=== PATIENT | female | born 1935 | race African-American/Black ===

== ENCOUNTER → 2018-04-13 | Outpatient (CLI) | payer BC | END | disposition home or self-care (01) | LOC: ECHO 08:45 | DX: I08.1 Rheumatic disorders of both mitral and tricuspid valves (principal); I25.10 Atherosclerotic heart disease of native coronary artery without angina pectoris; I10 Essential (primary) hypertension; E78.5 Hyperlipidemia, unspecified; R29.898 Other symptoms and signs involving the musculoskeletal system | CPT/HCPCS: 93306 ==

== ENCOUNTER 2018-08-15 14:15 | Inpatient (IN) | payer BC ==
[~2018-08-15] VITALS: Ht 160 cm; Wt 48.8 kg
[~2018-08-15 14:15] MED LIST: AMLO10TA6 PO; ASPI-482 PO; CARV25TA PO; LISI-130 PO
[2018-08-15] MEDS ORDERED: ACETAMINOPHEN 500 MG TABLET PO ONE (14:30)
[2018-08-15] MEDS ORDERED: LABETALOL 20 MG/4 ML DISP.SYRIN. IVP ONE ×2 (14:30→15:30)
--- NOTE | 2018-08-15 14:32 | PHYS DOC ---
Past Medical History Past Medical History: High Cholesterol, Hypertension, MA Past Surgical History: Coronary Bypass Surgery Smoking: Cigarettes (The patient is a nonsmoker.) Alcohol Use: None Drug Use: None Adult General HPI HPI Patient is a very pleasant 83-year-old female who presents to the emergency department via EMS. She states she hasn't felt well for about a month, with a posterior headache which has been rather steady and constant for about a month. She has not had any vision changes, nausea, vomiting, numbness or weakness. She has not had any chest pain or shortness of breath. She went see her PCP and was found to be profoundly hypertensive, blood pressure is about 250 systolic. She does have a history of hypertension, but states she ran out of her lisinopril 10 mg about a week ago. Her headache has been present for months, and did not start abruptly her suddenly. She is not having any fevers or chills, neck pain or stiffness. There are no alleviating or exacerbating factors to the patient's symptoms. Review of Systems Review of Systems Constitutional: Denies fever or chills [] Eyes: Denies change in visual acuity, redness, or eye pain [] HENT: Denies nasal congestion or sore throat [] Respiratory: Denies cough or shortness of breath [] Cardiovascular: The patient denies any shortness of breath, chest pain, palpitations, or orthopnea [] GI: Denies abdominal pain, nausea, vomiting, bloody stools or diarrhea [] : Denies dysuria or hematuria [] Musculoskeletal: Denies back pain or joint pain [] Integument: Denies rash or skin lesions [] Neurologic: Denies focal weakness or sensory changes [] Endocrine: Denies polyuria or polydipsia [] All other systems were reviewed and found to be within normal limits, except as documented in this note. Current Medications Current Medications Current Medications Medications (Trade) Dose Ordered Sig/Emiliano Start Time Stop Time Status Last Admin Dose Admin Acetaminophen (Tylenol) 1,000 mg 1X ONCE 08/15/18 14:30 18 14:31 DC 08/15/18 15:03 1,000 MG Labetalol HCl (Normodyne Iv Push) 40 mg 1X ONCE 08/15/18 15:30 18 15:31 DC Allergies Allergies Allergies Coded Allergies Type Severity Reaction Last Updated Verified morphine Allergy Intermediate 3/31/14 Yes Physical Exam Physical Exam PHYSICAL EXAM: CONSTITUTIONAL: Well developed, well nourished HEAD: normocephalic, atraumatic EENT: PERRL, EOMI. Conjunctivae normal color, sclerae non-icteric; moist mucous membranes. NECK: Supple, non-tender; no meningismus. LUNGS: Lungs CTA, breathing even and unlabored. Normal air movement. HEART: Regular rate and rhythm, no murmur CHEST: No deformity; non-tender ABDOMEN: The abdomen is soft, and non-tender, no masses or bruits. EXTREM: Normal ROM; no deformity, no calf tenderness. Normal pulses palpable in all extremities. There is no pedal edema. SKIN: No rash; no diaphoresis NEURO: Alert; normal speech and cognition; CN's grossly intact; strength grossly intact without focal deficit. Visual lopez are intact by confrontation. [id number] testing is normal. BACK: No CVA TTP. Current Patient Data Vital Signs Vital Signs Date Time Temp Pulse Resp B/P (MAP) Pulse Ox O2 Delivery O2 Flow Rate FiO2 08/15/18 15:08 52 218/101 08/15/18 14:31 98.1 16 98 Room Air 98.1 Lab Values Laboratory Tests Test 08/15/18 14:27 White Blood Count 5.5 x10^3/uL (4.0-11.0) Red Blood Count 3.97 x10^6/uL (3.50-5.40) Hemoglobin 11.1 g/dL (12.0-15.5) L Hematocrit 33.8 % (36.0-47.0) L Mean Corpuscular Volume 85 fL (79-100) Mean Corpuscular Hemoglobin 28 pg (25-35) Mean Corpuscular Hemoglobin Concent 33 g/dL (31-37) Red Cell Distribution Width 14.7 % (11.5-14.5) H Platelet Count 230 x10^3/uL (140-400) Neutrophils (%) (Auto) 53 % (31-73) Lymphocytes (%) (Auto) 32 % (24-48) Monocytes (%) (Auto) 9 % (0-9) Eosinophils (%) (Auto) 5 % (0-3) H Basophils (%) (Auto) 1 % (0-3) Neutrophils # (Auto) 2.9 x10^3uL (1.8-7.7) Lymphocytes # (Auto) 1.8 x10^3/uL (1.0-4.8) Monocytes # (Auto) 0.5 x10^3/uL (0.0-1.1) Eosinophils # (Auto) 0.3 x10^3/uL (0.0-0.7) Basophils # (Auto) 0.1 x10^3/uL (0.0-0.2) Prothrombin Time 14.7 SEC (11.7-14.0) H Prothrombin Time INR 1.2 (0.8-1.1) H Sodium Level 142 mmol/L (136-145) Potassium Level 3.4 mmol/L (3.5-5.1) L Chloride Level 104 mmol/L (98-107) Carbon Dioxide Level 27 mmol/L (21-32) Anion Gap 11 (6-14) Blood Urea Nitrogen 18 mg/dL (7-20) Creatinine 1.4 mg/dL (0.6-1.0) H Estimated GFR (Cockcroft-Gault) 43.7 BUN/Creatinine Ratio 13 (6-20) Glucose Level 84 mg/dL (70-99) Calcium Level 9.0 mg/dL (8.5-10.1) Total Bilirubin 0.4 mg/dL (0.2-1.0) Aspartate Amino Transferase (AST) 18 U/L (15-37) Alanine Aminotransferase (ALT) 9 U/L (14-59) L Alkaline Phosphatase 72 U/L (46-116) Creatine Kinase 95 U/L (26-192) Creatine Kinase MB (Mass) 1.0 ng/mL (0.0-3.6) Creatine Kinase MB Relative Index 1.1 % (0-4) Troponin I Quantitative < 0.017 ng/mL (0.000-0.055) Total Protein 7.6 g/dL (6.4-8.2) Albumin 3.3 g/dL (3.4-5.0) L Albumin/Globulin Ratio 0.8 (1.0-1.7) L Laboratory Tests 08/15/18 14:27 Laboratory Tests 08/15/18 14:27 EKG EKG [Normal sinus rhythm at a rate of 48 bpm, normal axis, QTC of 486 ms with otherwise normal intervals, left ventricular hypertrophy, there are no acute ischemic ST/T changes.] Radiology/Procedures Radiology/Procedures [PROCEDURE: CT HEAD WO CONTRAST CT HEAD WO CONTRAST Clinical indications: Headache and hypertension X MONTHS COMPARISON: August 25, 2009. Technique: Noncontrast axial cross sectional scanning of the head was performed. PQRS compliance Statement One or more of the following individualized dose reduction techniques were utilized for this study: 1. Automated exposure control 2. Adjustment of the mA and/or kV according to patient size 3. Use of iterative reconstruction technique Findings: No acute intracranial hemorrhage or midline shift or mass-effect or hydrocephalus or extra-axial fluid collection is seen. Mild chronic small vessel ischemic disease is evident involving both thalami and the right basal ganglia and the left basal ganglia No new focal hypodense area or sulci effacement is seen to indicate an acute infarct or edema radiographically. No skull fracture or pneumocephalus is seen. No opacification of the mastoid sinuses or the paranasal sinuses is seen. The maxillary sinuses are not completely seen in this study. Impression: No acute intracranial abnormality is seen.] PROCEDURE: PORTABLE CHEST 1V PORTABLE CHEST 1V Clinical indications: The patient states has high blood pressure, hypertension. COMPARISON: November 24, 2013. Findings: No acute lung infiltrate or pleural effusion or pulmonary edema or lung mass or pneumothorax is seen. Sternotomy is again evident. The heart size is prominent but stable. The pulmonary vasculature, mediastinum and both calvin are stable. Impression: No acute radiographic abnormality is seen. Course & Med Decision Making Course & Med Decision Making Pertinent Labs and Imaging studies reviewed. (See chart for details) [3:40 PM: The patient's condition remains stable. Her headache has improved somewhat. Her blood pressure has had about a 10% reduction, down to about 225 systolic. She'll be given a second dose of labetalol and I will also give her dose of her lisinopril, something she missed this morning. The case was discussed with the hospitalist will admit the patient for further evaluation and treatment.] Dragon Disclaimer Dragon Disclaimer This electronic medical record was generated, in whole or in part, using a voice recognition dictation system. Departure Departure Impression: Primary Impression: Hypertensive urgency Disposition: 09 ADMITTED INPATIENT Admitting Physician: David Bertrand Condition: STABLE Referrals: JOSH ARRIETA (PCP) CRHISTINA CHAVARRIA MD Aug 15, 2018 14:32
[2018-08-15 14:38] LABS: BASO # 0.1 x10^3/uL (0.0-0.2); BASO % 1 % (0-3); EOS # 0.3 x10^3/uL (0.0-0.7); EOS % 5 % (0-3); HEMATOCRIT 33.8 % (36.0-47.0); HEMOGLOBIN 11.1 g/dL (12.0-15.5); LYMPH # 1.8 x10^3/uL (1.0-4.8); LYMPH % 32 % (24-48); MEAN CORPUSCULAR HEMOGLOBIN 28 pg (25-35); MEAN CORPUSCULAR HGB CONC 33 g/dL (31-37); MEAN CORPUSCULAR VOLUME 85 fL (79-100); MONO # 0.5 x10^3/uL (0.0-1.1); MONO % 9 % (0-9); NEUT # 2.9 x10^3uL (1.8-7.7); NEUT % 53 % (31-73); PLATELET COUNT 230 x10^3/uL (140-400); RED BLOOD COUNT 3.97 x10^6/uL (3.50-5.40); RED CELL DISTRIBUTION WIDTH 14.7 % (11.5-14.5); WHITE BLOOD COUNT 5.5 x10^3/uL (4.0-11.0)
[2018-08-15 14:45] LABS: PROTHROMBIN TIME PATIENT 14.7 SEC (11.7-14.0)
[2018-08-15 14:51] LABS: CREATININE 1.4 mg/dL (0.6-1.0); GFR 43.7; POTASSIUM 3.4 mmol/L (3.5-5.1)
[2018-08-15 14:58] LABS: ALBUMIN 3.3 g/dL (3.4-5.0); ALBUMIN/GLOBULIN RATIO 0.8 (1.0-1.7); TOTAL BILIRUBIN 0.4 mg/dL (0.2-1.0); TOTAL PROTEIN 7.6 g/dL (6.4-8.2)
--- NOTE | 2018-08-15 15:21 | RAD ---
PORTABLE CHEST 1V Clinical indications: The patient states has high blood pressure, hypertension. COMPARISON: November 24, 2013. Findings: No acute lung infiltrate or pleural effusion or pulmonary edema or lung mass or pneumothorax is seen. Sternotomy is again evident. The heart size is prominent but stable. The pulmonary vasculature, mediastinum and both calvin are stable. Impression: No acute radiographic abnormality is seen. Electronically signed by: Roque López MD (08/15/2018 3:17 PM) [facility]
--- NOTE | 2018-08-15 15:36 | RAD ---
CT HEAD WO CONTRAST Clinical indications: Headache and hypertension X MONTHS COMPARISON: August 25, 2009. Technique: Noncontrast axial cross sectional scanning of the head was performed. PQRS compliance Statement One or more of the following individualized dose reduction techniques were utilized for this study: 1. Automated exposure control 2. Adjustment of the mA and/or kV according to patient size 3. Use of iterative reconstruction technique Findings: No acute intracranial hemorrhage or midline shift or mass-effect or hydrocephalus or extra-axial fluid collection is seen. Mild chronic small vessel ischemic disease is evident involving both thalami and the right basal ganglia and the left basal ganglia No new focal hypodense area or sulci effacement is seen to indicate an acute infarct or edema radiographically. No skull fracture or pneumocephalus is seen. No opacification of the mastoid sinuses or the paranasal sinuses is seen. The maxillary sinuses are not completely seen in this study. Impression: No acute intracranial abnormality is seen. Electronically signed by: Roque López MD (08/15/2018 3:33 PM) [id number]
--- NOTE | 2018-08-15 15:41 | EKG ---
[facility] [address] [place] [address] Test Date: 2018-08-15 Test Time: 14:47:10 Pat Name: SARIAH MENENDEZ Department: Room: Gender: F Barker Operator: : [id number] Requested By: CHRISTINA CHAVARRIA Order Number: [id number] Reading MD: Measurements Intervals [place] Rate: 48 P: 38 WY: 136 QRS: 1 QRSD: 86 T: 41 QT: 540 QTc: 486 Interpretive Statements SINUS BRADYCARDIA PROLONGED QT NO SPECIFIC ECG ABNORMALITIES RI6.01 No previous ECG available for comparison
[2018-08-15] MEDS ORDERED: LISINOPRIL 10 MG TABLET PO ONE (15:45)
[2018-08-15 16:14] LABS: BILIRUBIN,URINE NEGATIVE (NEG); CLARITY,URINE CLEAR; COLOR,URINE YELLOW; NITRITE,URINE NEGATIVE (NEG); PH,URINE 6.5; PROTEIN,URINE NEGATIVE (NEG-TRACE)
[2018-08-15 16:20] LABS: BACTERIA,URINE FEW /HPF (0-FEW); SQUAMOUS EPITHELIAL CELL,UR FEW /LPF; WBC,URINE OCC /HPF (0-4)
[2018-08-15 17:30] VITALS: BP 220/93
[2018-08-15] MEDS ORDERED: LISI40TA2 PO (17:58)
[2018-08-15] MEDS ORDERED: CARV25TA2 PO (17:58)
[2018-08-15 18:00] VITALS: BP 162/97
[2018-08-15] MEDS ORDERED: LISINOPRIL 20 MG TABLET PO ONE (18:30)
[2018-08-15] MEDS ORDERED: amLODIPine BESYLATE 10 MG TABLET PO ONE (18:30)
--- NOTE | 2018-08-15 18:44 | HP ---
ADMIT DATE: 08/15/2018 CHIEF COMPLAINT: Not feeling well. HISTORY OF PRESENT ILLNESS: The patient is a pleasant 83-year-old female who has not been feeling well. She has been having a headache, has been rather steady, rated at 9/10, worse with moving, better with sitting still. While in the ER, we checked her blood pressure. It is 250 systolically. She has now been admitted for severe accelerated hypertension. PAST MEDICAL HISTORY: Hypertension, hyperlipidemia, myocardial infarction, coronary bypass. ALLERGIES: MORPHINE. FAMILY HISTORY: Coronary disease. SOCIAL HISTORY: She does not drink, smoke or take drugs. 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 MEDICATIONS: Reviewed. She is on 3 including carvedilol, lisinopril and aspirin. REVIEW OF SYSTEMS: GENERAL: No history of weight change, weakness or fevers. SKIN: No bruising, hair changes or rashes. EYES: No blurred, double or loss of vision. NOSE AND THROAT: No history of nosebleeds, hoarseness or sore throat. HEART: No history of palpitations, chest pain or shortness of breath on exertion. LUNGS: Denies cough, hemoptysis, wheezing or shortness of breath. GASTROINTESTINAL: Denies changes in appetite, nausea, vomiting, diarrhea or constipation. GENITOURINARY: No history of frequency, urgency, hesitancy or nocturia. NEUROLOGIC: She complains of a headache. PSYCHIATRIC: No history of panic, anxiety or depression. ENDOCRINE: No history of heat or cold intolerance, polyuria or polydipsia. EXTREMITIES: Denies muscle weakness, joint pain, pain on walking or stiffness. PHYSICAL EXAMINATION: VITAL SIGNS: Temperature afebrile, pulse 48, respirations 20, blood pressure 227/110. GENERAL: She is alert, cooperative. HEART: Normal S1, S2. LUNGS: Clear. ABDOMEN: Soft. EXTREMITIES: No edema. SKIN: No rash. ENDOCRINE: No thyromegaly. LYMPHATICS: No cervical nodes. HEMATOPOIETIC: No bruising. PSYCHIATRIC: She is a little depressed. GENITOURINARY: Normal. Hemoglobin is 11.1, potassium 3.4. ASSESSMENT AND PLAN: Accelerated malignant hypertension. The patient has been admitted. We will give her IV Cardizem, p.o. labetalol, replace her potassium, cardiac monitoring, serial enzymes, serial EKGs, consult Cardiology, home meds. POLLYL Marylu PIERSON DO DR: Shahrzad JOB#: [id number] / [id number]
[2018-08-15 19:00] VITALS: BP 156/72
[2018-08-15 19:25] VITALS: BP 142/66
[2018-08-15 23:15] VITALS: BP 187/87
[2018-08-16] MEDS ORDERED: cloNIDine HCL 0.2 MG TABLET PO PRN (00:30)
[2018-08-16] MEDS ORDERED: cloNIDine HCL 0.1 MG TABLET PO ONE (00:45)
[2018-08-16 03:20] VITALS: BP 134/63
[2018-08-16 07:00] VITALS: BP 146/69
[2018-08-16] MEDS: ASPIRIN ENTERIC COATED 81 MG TABLET.DR. PO SCH (08:41)
[2018-08-16] MEDS: LISINOPRIL 20 MG TABLET PO SCH (08:41)
[2018-08-16] MEDS ORDERED: CARVEDILOL 12.5 MG TABLET. PO SCH (09:00)
--- NOTE | 2018-08-16 09:12 | PDOC2 ---
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 She went to her PCP yesterday and was told that her BP was very high and because she was also having PERDUE she was told to come to ED. Reports that she ran out of lisinopril about a week ago but at the same time she has been having frontal PERDUE in the last few weeks. No visual or auditory disturbances, She has been eating more fast foods in the last few weeks due to her grandson being around. She does drink 2 cans of coke and mainly water. Denies any SOA, chest pain, unilateral weakness, dysarthria. No frequent dizziness or passing out. No recent falls or injury. Denies any leg pain and there has been no changes to her activity tolerance. 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) FAMILY HISTORY Family History: Hypertension SOCIAL HISTORY Smoke: No ALCOHOL: none Drugs: None Lives: with Family (son) CURRENT MEDICATIONS CURRENT MEDICATIONS Current Medications Medications (Trade) Dose Ordered Sig/Emiliano Route PRN Reason Start Time Stop Time Status Last Admin Dose Admin Acetaminophen (Tylenol) 1,000 mg 1X ONCE PO 08/15/18 14:30 08/15/18 14:31 DC 08/15/18 15:03 Labetalol HCl (Normodyne Iv Push) 20 mg 1X ONCE IVP 08/15/18 14:30 08/15/18 14:31 DC 08/15/18 15:08 Labetalol HCl (Normodyne Iv Push) 40 mg 1X ONCE IVP 08/15/18 15:30 08/15/18 15:31 DC 08/15/18 15:53 Lisinopril (Prinivil) 10 mg 1X ONCE PO 08/15/18 15:45 08/15/18 15:47 DC 08/15/18 15:58 Amlodipine Besylate (Norvasc) 10 mg 1X ONCE PO 08/15/18 18:30 08/15/18 18:31 DC 08/15/18 18:37 Aspirin (Ecotrin) 81 mg DAILY PO 08/16/18 09:00 08/16/18 08:41 Carvedilol (Coreg) 25 mg DAILY PO 08/16/18 09:00 08/16/18 08:42 Lisinopril (Prinivil) 40 mg DAILY PO 08/16/18 09:00 08/16/18 08:41 Lisinopril (Prinivil) 20 mg 1X ONCE PO 08/15/18 18:30 08/15/18 18:31 DC 08/15/18 18:38 Influenza Virus Vaccine (Afluria Trivalent [id number] Syringe) 0.5 ml ONCE ONCE VAX IM 08/16/18 09:00 08/16/18 09:01 08/16/18 08:44 Clonidine HCl (Catapres) 0.2 mg 1X ONCE PO 08/16/18 00:45 08/16/18 00:46 DC 08/16/18 00:37 ALLERGIES ALLERGIES: Coded Allergies: morphine (Verified Allergy, Intermediate, 12/09/13) ROS Review of System 14 point ROS evaluated with pertinent positives noted per HPI PHYSICAL EXAM General: Alert, Oriented X3, Cooperative, No acute distress HEENT: Atraumatic, Mucous membr. moist/pink Lungs: Clear to auscultation, Normal air movement Heart: Regular rate (SR/SB), Normal S1, Normal S2, Other (3/6 systolic murmur to JENNIFER border; 2/6 diffuse to apex and LLS border) Abdomen: Soft, No tenderness Extremities: No cyanosis, No edema Skin: No breakdown, No significant lesion Neuro: Normal speech, Sensation intact Psych/Mental Status: Mental status NL, Mood NL MUSCULOSKELETAL: Osteoarthritic changes both hands VITALS VITALS Vital Signs Date Time Temp Pulse Resp B/P (MAP) Pulse Ox O2 Delivery O2 Flow Rate FiO2 08/16/18 08:42 52 144/69 08/16/18 03:20 97.7 17 100 Room Air 97.7 LABS Lab: Laboratory Tests Test 08/15/18 14:27 08/15/18 16:00 White Blood Count 5.5 x10^3/uL (4.0-11.0) Red Blood Count 3.97 x10^6/uL (3.50-5.40) Hemoglobin 11.1 g/dL (12.0-15.5) Hematocrit 33.8 % (36.0-47.0) Mean Corpuscular Volume 85 fL (79-100) Mean Corpuscular Hemoglobin 28 pg (25-35) Mean Corpuscular Hemoglobin Concent 33 g/dL (31-37) Red Cell Distribution Width 14.7 % (11.5-14.5) Platelet Count 230 x10^3/uL (140-400) Neutrophils (%) (Auto) 53 % (31-73) Lymphocytes (%) (Auto) 32 % (24-48) Monocytes (%) (Auto) 9 % (0-9) Eosinophils (%) (Auto) 5 % (0-3) Basophils (%) (Auto) 1 % (0-3) Neutrophils # (Auto) 2.9 x10^3uL (1.8-7.7) Lymphocytes # (Auto) 1.8 x10^3/uL (1.0-4.8) Monocytes # (Auto) 0.5 x10^3/uL (0.0-1.1) Eosinophils # (Auto) 0.3 x10^3/uL (0.0-0.7) Basophils # (Auto) 0.1 x10^3/uL (0.0-0.2) Prothrombin Time 14.7 SEC (11.7-14.0) Prothromb Time International Ratio 1.2 (0.8-1.1) Sodium Level 142 mmol/L (136-145) Potassium Level 3.4 mmol/L (3.5-5.1) Chloride Level 104 mmol/L (98-107) Carbon Dioxide Level 27 mmol/L (21-32) Anion Gap 11 (6-14) Blood Urea Nitrogen 18 mg/dL (7-20) Creatinine 1.4 mg/dL (0.6-1.0) Estimated GFR (Cockcroft-Gault) 43.7 BUN/Creatinine Ratio 13 (6-20) Glucose Level 84 mg/dL (70-99) Calcium Level 9.0 mg/dL (8.5-10.1) Total Bilirubin 0.4 mg/dL (0.2-1.0) Aspartate Amino Transf (AST/SGOT) 18 U/L (15-37) Alanine Aminotransferase (ALT/SGPT) 9 U/L (14-59) Alkaline Phosphatase 72 U/L (46-116) Creatine Kinase 95 U/L (26-192) Creatine Kinase MB (Mass) 1.0 ng/mL (0.0-3.6) Creatine Kinase MB Relative Index 1.1 % (0-4) Troponin I Quantitative < 0.017 ng/mL (0.000-0.055) Total Protein 7.6 g/dL (6.4-8.2) Albumin 3.3 g/dL (3.4-5.0) Albumin/Globulin Ratio 0.8 (1.0-1.7) Urine Collection Type Unknown Urine Color Yellow Urine Clarity Clear Urine pH 6.5 Urine Specific [place] 1.015 Urine Protein Negative mg/dL (NEG-TRACE) Urine Glucose (UA) Negative mg/dL (NEG) Urine Ketones (Stick) Negative mg/dL (NEG) Urine Blood Negative (NEG) Urine Nitrite Negative (NEG) Urine Bilirubin Negative (NEG) Urine Urobilinogen Dipstick 1.0 mg/dL (0.2 mg/dL) Urine Leukocyte Esterase Trace (NEG) Urine RBC 1-2 /HPF (0-2) Urine WBC Occ /HPF (0-4) Urine Squamous Epithelial Cells Few /LPF Urine Bacteria Few /HPF (0-FEW) ECHOCARDIOGRAM ECHOCARDIOGRAM <Conclusion> Basal inferior wall is akinetic. The ejection fraction is estiamted at 60%. Mild mitral regurgitation. Mild tricuspid regurgitation. The PA pressure was estimated at 29 mmHg. There is no evidence of significant pericardial effusion. DATE: 04/13/18 1024 ASSESSMENT/PLAN ASSESSMENT/PLAN 1. PERDUE: due to high BP. CT head no acute changes, no neuro symptoms 2. Malignant HTN: ran out of lisinopril for 1 week with increased Na intake 3. CAD: past CABG, clinically stable 4. PAD: stable no claudications 5. Asymptomatic SB: due to coreg and addition of inpt clonidine 6. Murmur: MR/TR Recommendations 1. lipids, will place on statin per level. 2. Continue ASA. No further clonidine and will decrease coreg from 25 mg to 12.5 mg bid 3. Continue with norvasc. Restart lisinopril and will add HCTZ and imdur. 4. BMP, Mg and TSH 5. DASH diet, dietitian consult CELIA PEARCE MD 08/16/182033: CARDIAC CONSULT ASSESSMENT/PLAN ASSESSMENT/PLAN Plan event monitor as outpatient to assess arrhythmia burden Accelerated HTN from non compliance, better controlled since admission CAD status clinically stable Recent 2D echo showed EF 60% Continue current medical regimen. Thank you for your consultation SWAPNA RAMOS APRN Aug 16, 2018 09:12 CELIA PEARCE MD Aug 16, 2018 20:34
[2018-08-16] MEDS ORDERED: POTASSIUM CHLORIDE 20 MEQ TABLET.ER. PO ONE (09:15)
[2018-08-16 09:58] LABS: BASO # 0.1 x10^3/uL (0.0-0.2); BASO % 1 % (0-3); EOS # 0.2 x10^3/uL (0.0-0.7); EOS % 4 % (0-3); HEMATOCRIT 34.1 % (36.0-47.0); HEMOGLOBIN 11.1 g/dL (12.0-15.5); LYMPH # 1.3 x10^3/uL (1.0-4.8); LYMPH % 27 % (24-48); MEAN CORPUSCULAR HEMOGLOBIN 28 pg (25-35); MEAN CORPUSCULAR HGB CONC 33 g/dL (31-37); MEAN CORPUSCULAR VOLUME 85 fL (79-100); MONO # 0.3 x10^3/uL (0.0-1.1); MONO % 7 % (0-9); NEUT # 2.9 x10^3uL (1.8-7.7); NEUT % 61 % (31-73); PLATELET COUNT 215 x10^3/uL (140-400); RED BLOOD COUNT 4.04 x10^6/uL (3.50-5.40); RED CELL DISTRIBUTION WIDTH 14.9 % (11.5-14.5); WHITE BLOOD COUNT 4.8 x10^3/uL (4.0-11.0)
[2018-08-16 10:05] LABS: CALCIUM 9.1 mg/dL (8.5-10.1); CREATININE 1.3 mg/dL (0.6-1.0); GFR 47.6; POTASSIUM 3.9 mmol/L (3.5-5.1)
[2018-08-16 10:18] LABS: CHOLESTEROL/HDL RATIO 5.6
[2018-08-16 11:00] VITALS: BP 140/62
--- NOTE | 2018-08-16 11:11 | PDOC ---
PROGRESS NOTES Chief Complaint Chief Complaint Hypertensive Urgency History of Present Illness History of Present Illness Pt was seen on Cardiac floor for hypertensive urgency, Current BP 134/65 with sinus bradycardia R 54. She is lying down in bed, no acute overnight events, she did admit 40 lb wt loss over last 3-4 months, denied any hx of cancer or bloody stools. h pulmonary sarcoid, will consult Dr. Choe for work up on wt loss. Pt is hypokalemic with K 3.4 repleting currently, 08/15 CT head and CXR were negative for acute findings. MICK RN wt loss and any events or needs of pt Followed by Cardio and hem onc Vitals Vitals Vital Signs Date Time Temp Pulse Resp B/P (MAP) Pulse Ox O2 Delivery O2 Flow Rate FiO2 08/16/18 08:42 52 144/69 08/16/18 07:00 98.6 18 100 Room Air 98.6 Physical Exam General: Alert, Oriented X3, Cooperative, No acute distress Heart: Regular rate (SR/SB 54), Normal S1, Normal S2, Other (3/6 systolic murmur to JENNIFER border; 2/6 diffuse to apex and LLS border) Abdomen: Soft, No tenderness Extremities: No cyanosis, No edema Skin: No breakdown, No significant lesion Labs LABS Laboratory Tests Test 08/15/18 14:27 08/15/18 16:00 08/16/18 08:40 White Blood Count 5.5 x10^3/uL (4.0-11.0) 4.8 x10^3/uL (4.0-11.0) Red Blood Count 3.97 x10^6/uL (3.50-5.40) 4.04 x10^6/uL (3.50-5.40) Hemoglobin 11.1 g/dL (12.0-15.5) 11.1 g/dL (12.0-15.5) Hematocrit 33.8 % (36.0-47.0) 34.1 % (36.0-47.0) Mean Corpuscular Volume 85 fL (79-100) 85 fL (79-100) Mean Corpuscular Hemoglobin 28 pg (25-35) 28 pg (25-35) Mean Corpuscular Hemoglobin Concent 33 g/dL (31-37) 33 g/dL (31-37) Red Cell Distribution Width 14.7 % (11.5-14.5) 14.9 % (11.5-14.5) Platelet Count 230 x10^3/uL (140-400) 215 x10^3/uL (140-400) Neutrophils (%) (Auto) 53 % (31-73) 61 % (31-73) Lymphocytes (%) (Auto) 32 % (24-48) 27 % (24-48) Monocytes (%) (Auto) 9 % (0-9) 7 % (0-9) Eosinophils (%) (Auto) 5 % (0-3) 4 % (0-3) Basophils (%) (Auto) 1 % (0-3) 1 % (0-3) Neutrophils # (Auto) 2.9 x10^3uL (1.8-7.7) 2.9 x10^3uL (1.8-7.7) Lymphocytes # (Auto) 1.8 x10^3/uL (1.0-4.8) 1.3 x10^3/uL (1.0-4.8) Monocytes # (Auto) 0.5 x10^3/uL (0.0-1.1) 0.3 x10^3/uL (0.0-1.1) Eosinophils # (Auto) 0.3 x10^3/uL (0.0-0.7) 0.2 x10^3/uL (0.0-0.7) Basophils # (Auto) 0.1 x10^3/uL (0.0-0.2) 0.1 x10^3/uL (0.0-0.2) Prothrombin Time 14.7 SEC (11.7-14.0) Prothromb Time International Ratio 1.2 (0.8-1.1) Sodium Level 142 mmol/L (136-145) 144 mmol/L (136-145) Potassium Level 3.4 mmol/L (3.5-5.1) 3.9 mmol/L (3.5-5.1) Chloride Level 104 mmol/L (98-107) 106 mmol/L (98-107) Carbon Dioxide Level 27 mmol/L (21-32) 28 mmol/L (21-32) Anion Gap 11 (6-14) 10 (6-14) Blood Urea Nitrogen 18 mg/dL (7-20) 19 mg/dL (7-20) Creatinine 1.4 mg/dL (0.6-1.0) 1.3 mg/dL (0.6-1.0) Estimated GFR (Cockcroft-Gault) 43.7 47.6 BUN/Creatinine Ratio 13 (6-20) Glucose Level 84 mg/dL (70-99) 98 mg/dL (70-99) Calcium Level 9.0 mg/dL (8.5-10.1) 9.1 mg/dL (8.5-10.1) Total Bilirubin 0.4 mg/dL (0.2-1.0) Aspartate Amino Transf (AST/SGOT) 18 U/L (15-37) Alanine Aminotransferase (ALT/SGPT) 9 U/L (14-59) Alkaline Phosphatase 72 U/L (46-116) Creatine Kinase 95 U/L (26-192) Creatine Kinase MB (Mass) 1.0 ng/mL (0.0-3.6) Creatine Kinase MB Relative Index 1.1 % (0-4) Troponin I Quantitative < 0.017 ng/mL (0.000-0.055) Total Protein 7.6 g/dL (6.4-8.2) Albumin 3.3 g/dL (3.4-5.0) Albumin/Globulin Ratio 0.8 (1.0-1.7) Urine Collection Type Unknown Urine Color Yellow Urine Clarity Clear Urine pH 6.5 Urine Specific [place] 1.015 Urine Protein Negative mg/dL (NEG-TRACE) Urine Glucose (UA) Negative mg/dL (NEG) Urine Ketones (Stick) Negative mg/dL (NEG) Urine Blood Negative (NEG) Urine Nitrite Negative (NEG) Urine Bilirubin Negative (NEG) Urine Urobilinogen Dipstick 1.0 mg/dL (0.2 mg/dL) Urine Leukocyte Esterase Trace (NEG) Urine RBC 1-2 /HPF (0-2) Urine WBC Occ /HPF (0-4) Urine Squamous Epithelial Cells Few /LPF Urine Bacteria Few /HPF (0-FEW) Triglycerides Level 75 mg/dL (0-150) Cholesterol Level 222 mg/dL (0-200) LDL Cholesterol, Calculated 167 mg/dL (0-100) VLDL Cholesterol, Calculated 15 mg/dL (0-40) Non-HDL Cholesterol Calculated 182 mg/dL (0-129) HDL Cholesterol 40 mg/dL (40-60) Cholesterol/HDL Ratio 5.6 Thyroid Stimulating Hormone (TSH) 1.681 uIU/mL (0.358-3.74) Review of Systems Review of Systems General: Admits 40lb unexplained wt loss Denies fever, chills, nightsweats Cardio: Denies chest pain, palpitations Assessment and Plan Assessmemt and Plan Assessment Hypertensive Urgency Sys 250 controlled 134/65 Sinus Bradycardia 54 Hypokalemia 3.4 repleting currently 40 lbs wt loss per patient- Oncology consult Sarcoidosis pulmonary Plan CBC BMP Hypertensive meds ASA Potassium repletion Cardiac monitoring Appreciate Cardiology input Appreciate Oncology input Appreciate Pulmonology input PT/OT home meds Comment Review of Relevant I have reviewed the following items gabriela (where applicable) has been applied. Labs Laboratory Tests Test 08/15/18 14:27 08/15/18 16:00 08/16/18 08:40 White Blood Count 5.5 x10^3/uL (4.0-11.0) 4.8 x10^3/uL (4.0-11.0) Red Blood Count 3.97 x10^6/uL (3.50-5.40) 4.04 x10^6/uL (3.50-5.40) Hemoglobin 11.1 g/dL (12.0-15.5) 11.1 g/dL (12.0-15.5) Hematocrit 33.8 % (36.0-47.0) 34.1 % (36.0-47.0) Mean Corpuscular Volume 85 fL (79-100) 85 fL (79-100) Mean Corpuscular Hemoglobin 28 pg (25-35) 28 pg (25-35) Mean Corpuscular Hemoglobin Concent 33 g/dL (31-37) 33 g/dL (31-37) Red Cell Distribution Width 14.7 % (11.5-14.5) 14.9 % (11.5-14.5) Platelet Count 230 x10^3/uL (140-400) 215 x10^3/uL (140-400) Neutrophils (%) (Auto) 53 % (31-73) 61 % (31-73) Lymphocytes (%) (Auto) 32 % (24-48) 27 % (24-48) Monocytes (%) (Auto) 9 % (0-9) 7 % (0-9) Eosinophils (%) (Auto) 5 % (0-3) 4 % (0-3) Basophils (%) (Auto) 1 % (0-3) 1 % (0-3) Neutrophils # (Auto) 2.9 x10^3uL (1.8-7.7) 2.9 x10^3uL (1.8-7.7) Lymphocytes # (Auto) 1.8 x10^3/uL (1.0-4.8) 1.3 x10^3/uL (1.0-4.8) Monocytes # (Auto) 0.5 x10^3/uL (0.0-1.1) 0.3 x10^3/uL (0.0-1.1) Eosinophils # (Auto) 0.3 x10^3/uL (0.0-0.7) 0.2 x10^3/uL (0.0-0.7) Basophils # (Auto) 0.1 x10^3/uL (0.0-0.2) 0.1 x10^3/uL (0.0-0.2) Prothrombin Time 14.7 SEC (11.7-14.0) Prothromb Time International Ratio 1.2 (0.8-1.1) Sodium Level 142 mmol/L (136-145) 144 mmol/L (136-145) Potassium Level 3.4 mmol/L (3.5-5.1) 3.9 mmol/L (3.5-5.1) Chloride Level 104 mmol/L (98-107) 106 mmol/L (98-107) Carbon Dioxide Level 27 mmol/L (21-32) 28 mmol/L (21-32) Anion Gap 11 (6-14) 10 (6-14) Blood Urea Nitrogen 18 mg/dL (7-20) 19 mg/dL (7-20) Creatinine 1.4 mg/dL (0.6-1.0) 1.3 mg/dL (0.6-1.0) Estimated GFR (Cockcroft-Gault) 43.7 47.6 BUN/Creatinine Ratio 13 (6-20) Glucose Level 84 mg/dL (70-99) 98 mg/dL (70-99) Calcium Level 9.0 mg/dL (8.5-10.1) 9.1 mg/dL (8.5-10.1) Total Bilirubin 0.4 mg/dL (0.2-1.0) Aspartate Amino Transf (AST/SGOT) 18 U/L (15-37) Alanine Aminotransferase (ALT/SGPT) 9 U/L (14-59) Alkaline Phosphatase 72 U/L (46-116) Creatine Kinase 95 U/L (26-192) Creatine Kinase MB (Mass) 1.0 ng/mL (0.0-3.6) Creatine Kinase MB Relative Index 1.1 % (0-4) Troponin I Quantitative < 0.017 ng/mL (0.000-0.055) Total Protein 7.6 g/dL (6.4-8.2) Albumin 3.3 g/dL (3.4-5.0) Albumin/Globulin Ratio 0.8 (1.0-1.7) Urine Collection Type Unknown Urine Color Yellow Urine Clarity Clear Urine pH 6.5 Urine Specific [place] 1.015 Urine Protein Negative mg/dL (NEG-TRACE) Urine Glucose (UA) Negative mg/dL (NEG) Urine Ketones (Stick) Negative mg/dL (NEG) Urine Blood Negative (NEG) Urine Nitrite Negative (NEG) Urine Bilirubin Negative (NEG) Urine Urobilinogen Dipstick 1.0 mg/dL (0.2 mg/dL) Urine Leukocyte Esterase Trace (NEG) Urine RBC 1-2 /HPF (0-2) Urine WBC Occ /HPF (0-4) Urine Squamous Epithelial Cells Few /LPF Urine Bacteria Few /HPF (0-FEW) Triglycerides Level 75 mg/dL (0-150) Cholesterol Level 222 mg/dL (0-200) LDL Cholesterol, Calculated 167 mg/dL (0-100) VLDL Cholesterol, Calculated 15 mg/dL (0-40) Non-HDL Cholesterol Calculated 182 mg/dL (0-129) HDL Cholesterol 40 mg/dL (40-60) Cholesterol/HDL Ratio 5.6 Thyroid Stimulating Hormone (TSH) 1.681 uIU/mL (0.358-3.74) Laboratory Tests Test 08/15/18 14:27 08/15/18 16:00 08/16/18 08:40 White Blood Count 5.5 x10^3/uL (4.0-11.0) 4.8 x10^3/uL (4.0-11.0) Red Blood Count 3.97 x10^6/uL (3.50-5.40) 4.04 x10^6/uL (3.50-5.40) Hemoglobin 11.1 g/dL (12.0-15.5) 11.1 g/dL (12.0-15.5) Hematocrit 33.8 % (36.0-47.0) 34.1 % (36.0-47.0) Mean Corpuscular Volume 85 fL (79-100) 85 fL (79-100) Mean Corpuscular Hemoglobin 28 pg (25-35) 28 pg (25-35) Mean Corpuscular Hemoglobin Concent 33 g/dL (31-37) 33 g/dL (31-37) Red Cell Distribution Width 14.7 % (11.5-14.5) 14.9 % (11.5-14.5) Platelet Count 230 x10^3/uL (140-400) 215 x10^3/uL (140-400) Neutrophils (%) (Auto) 53 % (31-73) 61 % (31-73) Lymphocytes (%) (Auto) 32 % (24-48) 27 % (24-48) Monocytes (%) (Auto) 9 % (0-9) 7 % (0-9) Eosinophils (%) (Auto) 5 % (0-3) 4 % (0-3) Basophils (%) (Auto) 1 % (0-3) 1 % (0-3) Neutrophils # (Auto) 2.9 x10^3uL (1.8-7.7) 2.9 x10^3uL (1.8-7.7) Lymphocytes # (Auto) 1.8 x10^3/uL (1.0-4.8) 1.3 x10^3/uL (1.0-4.8) Monocytes # (Auto) 0.5 x10^3/uL (0.0-1.1) 0.3 x10^3/uL (0.0-1.1) Eosinophils # (Auto) 0.3 x10^3/uL (0.0-0.7) 0.2 x10^3/uL (0.0-0.7) Basophils # (Auto) 0.1 x10^3/uL (0.0-0.2) 0.1 x10^3/uL (0.0-0.2) Prothrombin Time 14.7 SEC (11.7-14.0) Prothromb Time International Ratio 1.2 (0.8-1.1) Sodium Level 142 mmol/L (136-145) 144 mmol/L (136-145) Potassium Level 3.4 mmol/L (3.5-5.1) 3.9 mmol/L (3.5-5.1) Chloride Level 104 mmol/L (98-107) 106 mmol/L (98-107) Carbon Dioxide Level 27 mmol/L (21-32) 28 mmol/L (21-32) Anion Gap 11 (6-14) 10 (6-14) Blood Urea Nitrogen 18 mg/dL (7-20) 19 mg/dL (7-20) Creatinine 1.4 mg/dL (0.6-1.0) 1.3 mg/dL (0.6-1.0) Estimated GFR (Cockcroft-Gault) 43.7 47.6 BUN/Creatinine Ratio 13 (6-20) Glucose Level 84 mg/dL (70-99) 98 mg/dL (70-99) Calcium Level 9.0 mg/dL (8.5-10.1) 9.1 mg/dL (8.5-10.1) Total Bilirubin 0.4 mg/dL (0.2-1.0) Aspartate Amino Transf (AST/SGOT) 18 U/L (15-37) Alanine Aminotransferase (ALT/SGPT) 9 U/L (14-59) Alkaline Phosphatase 72 U/L (46-116) Creatine Kinase 95 U/L (26-192) Creatine Kinase MB (Mass) 1.0 ng/mL (0.0-3.6) Creatine Kinase MB Relative Index 1.1 % (0-4) Troponin I Quantitative < 0.017 ng/mL (0.000-0.055) Total Protein 7.6 g/dL (6.4-8.2) Albumin 3.3 g/dL (3.4-5.0) Albumin/Globulin Ratio 0.8 (1.0-1.7) Urine Collection Type Unknown Urine Color Yellow Urine Clarity Clear Urine pH 6.5 Urine Specific [place] 1.015 Urine Protein Negative mg/dL (NEG-TRACE) Urine Glucose (UA) Negative mg/dL (NEG) Urine Ketones (Stick) Negative mg/dL (NEG) Urine Blood Negative (NEG) Urine Nitrite Negative (NEG) Urine Bilirubin Negative (NEG) Urine Urobilinogen Dipstick 1.0 mg/dL (0.2 mg/dL) Urine Leukocyte Esterase Trace (NEG) Urine RBC 1-2 /HPF (0-2) Urine WBC Occ /HPF (0-4) Urine Squamous Epithelial Cells Few /LPF Urine Bacteria Few /HPF (0-FEW) Triglycerides Level 75 mg/dL (0-150) Cholesterol Level 222 mg/dL (0-200) LDL Cholesterol, Calculated 167 mg/dL (0-100) VLDL Cholesterol, Calculated 15 mg/dL (0-40) Non-HDL Cholesterol Calculated 182 mg/dL (0-129) HDL Cholesterol 40 mg/dL (40-60) Cholesterol/HDL Ratio 5.6 Thyroid Stimulating Hormone (TSH) 1.681 uIU/mL (0.358-3.74) Medications Current Medications Acetaminophen (Tylenol) 1,000 mg 1X ONCE PO Last administered on 08/15/18at 15: 03; Start 08/15/18 at 14:30; Stop 08/15/18 at 14:31; Status DC Labetalol HCl (Normodyne Iv Push) 20 mg 1X ONCE IVP Last administered on at 15:08; Start 08/15/18 at 14:30; Stop 08/15/18 at 14:31; Status DC Labetalol HCl (Normodyne Iv Push) 40 mg 1X ONCE IVP Last administered on at 15:53; Start 08/15/18 at 15:30; Stop 08/15/18 at 15:31; Status DC Lisinopril (Prinivil) 10 mg 1X ONCE PO Last administered on 08/15/18at 15:58; Start 08/15/18 at 15:45; Stop 08/15/18 at 15:47; Status DC Amlodipine Besylate (Norvasc) 10 mg 1X ONCE PO Last administered on 08/15/18at 18:37; Start 08/15/18 at 18:30; Stop 08/15/18 at 18:31; Status DC Aspirin (Ecotrin) 81 mg DAILY PO Last administered on 08/16/18at 08:41; Start 08/16/18 at 09:00 Carvedilol (Coreg) 25 mg DAILY PO Last administered on 08/16/18at 08:42; Start 08/16/18 at 09:00; Stop 08/16/18 at 09:14; Status DC Lisinopril (Prinivil) 40 mg DAILY PO Last administered on 08/16/18at 08:41; Start 08/16/18 at 09:00 Lisinopril (Prinivil) 20 mg 1X ONCE PO Last administered on 08/15/18at 18:38; Start 08/15/18 at 18:30; Stop 08/15/18 at 18:31; Status DC Influenza Virus Vaccine (Afluria Trivalent [id number] Syringe) 0.5 ml ONCE ONCE VAX IM Last administered on 08/16/18at 08:44; Start 08/16/18 at 09:00; Stop 08/16/18 at 09:01; Status DC Clonidine HCl (Catapres) 0.2 mg 1X ONCE PO Last administered on 08/16/18at 00: 37; Start 08/16/18 at 00:45; Stop 08/16/18 at 00:46; Status DC Clonidine HCl (Catapres) 0.2 mg PRN Q2HR PRN PO HYPERTENSION, SEE COMMENTS; Start 08/16/18 at 00:30 Potassium Chloride (Klor-Con) 40 meq 1X ONCE PO ; Start 08/16/18 at 09:15; Stop 08/16/18 at 09:16; Status Cancel Carvedilol (Coreg) 12.5 mg DAILY PO ; Start 08/17/18 at 09:00 Isosorbide Mononitrate (Imdur) 30 mg DAILY PO ; Start 08/16/18 at 10:00 Hydrochlorothiazide (Microzide) 12.5 mg DAILY PO ; Start 08/16/18 at 10:00 Potassium Chloride (KCl Oral Soln) 40 meq 1X ONCE FT ; Start 08/16/18 at 14:00 ; Stop 08/16/18 at 14:01 Active Scripts Active Reported Carvedilol 25 Mg Tablet 25 Mg PO DAILY Lisinopril 40 Mg Tablet 40 Mg PO DAILY Aspir 81 (Aspirin) 81 Mg Tablet.dr 1 Tab PO DAILY Vitals/I & O Vital Sign - Last 24 Hours 08/15/18 08/15/18 08/15/18 08/15/18 14:19 14:31 14:48 15:03 Temp 98.1 98.1 Pulse 52 55 50 50 Resp 22 16 24 26 B/P (MAP) 242/104 (150) Pulse Ox 98 98 97 99 O2 Delivery Room Air 08/15/18 08/15/18 08/15/18 08/15/18 15:08 15:33 15:48 15:53 Pulse 52 50 50 48 Resp 20 20 B/P (MAP) 218/101 227/110 Pulse Ox 98 98 08/15/18 08/15/18 08/15/18 08/15/18 15:58 16:04 16:18 16:48 Pulse 52 54 48 44 Resp 19 22 18 B/P (MAP) 206/87 Pulse Ox 98 98 08/15/18 08/15/18 08/15/18 08/15/18 17:03 17:30 17:30 18:00 Temp 98.5 98.5 Pulse 48 57 56 Resp 21 B/P (MAP) 220/93 (135) 162/97 (118) Pulse Ox 96 94 O2 Delivery Room Air Room Air 08/15/18 08/15/18 08/15/18 08/15/18 18:37 18:38 19:00 19:25 Temp 98.0 98.0 Pulse 53 52 46 49 Resp 18 B/P (MAP) 197/87 197/87 156/72 (100) 142/66 (91) Pulse Ox 100 O2 Delivery Room Air 08/15/18 08/15/18 08/16/18 08/16/18 20:35 23:15 00:37 03:20 Temp 97.9 97.7 97.9 97.7 Pulse 48 58 54 Resp 18 17 B/P (MAP) 187/87 (120) 187/87 134/63 (86) Pulse Ox 100 100 O2 Delivery Room Air Room Air Room Air 08/16/18 08/16/18 08/16/18 07:00 08:41 08:42 Temp 98.6 98.6 Pulse 62 55 52 Resp 18 B/P (MAP) 146/69 (94) 144/69 144/69 Pulse Ox 100 O2 Delivery Room Air Intake and Output 08/15/18 08/15/18 08/16/18 15:00 23:00 07:00 Intake Total 0 ml Output Total 0 ml Balance 0 ml CECELIA PIERSON III DO Aug 16, 2018 11:11
[2018-08-16] MEDS: hydroCHLOROthiazide 12.5 MG CAPSULE PO SCH (11:27)
[2018-08-16] MEDS: ISOSORBIDE MONONITRATE ER 30 MG TAB.ER.24H PO SCH (11:27)
[2018-08-16] MEDS ORDERED: POTASSIUM CHLORIDE 20 MEQ/15 ML ORAL LIQUID. FT ONE (14:00)
--- NOTE | 2018-08-16 14:01 | CONS ---
DATE OF CONSULTATION: 08/16/2018 REQUESTING PHYSICIAN: David Bertrand DO REASON FOR CONSULTATION: A 40-pound weight loss and to evaluate for malignancy. HISTORY OF PRESENT ILLNESS: The patient is an 83-year-old female who reports having had a history of sarcoidosis at the age of 63. She was treated at [facility] for sarcoidosis. She has not had any issues with sarcoidosis after that. She noticed excessive night sweats and weight loss between April through 08/2018. She has lost 40 pounds of weight during this period. Hence, Dr. Bertrand was concerned about malignancy and consulted me for further evaluation. She denies any chest pain or dyspnea. No abdominal pain. No nausea, vomiting. No nose bleeds or gum bleeding. No hematemesis, melena or hematochezia. No hematuria. She was admitted to on 08/15/2018 for malignant hypertension. Her blood pressure was very high and she was having frontal headaches. Her blood pressure was as high as 250 systolic. She underwent a CT scan of the head on 08/15/2018 without contrast that was unremarkable. PAST MEDICAL HISTORY: Sarcoidosis, coronary artery disease, hypertension, chronic renal insufficiency. PAST SURGICAL HISTORY: CABG. FAMILY HISTORY: Sister had ovarian cancer. SOCIAL HISTORY: No smoking or alcohol abuse. REVIEW OF SYSTEMS: A 12-point review of system was performed. Pertinent positives are mentioned in the history of present illness. Rest of the system review is negative. PHYSICAL EXAMINATION: GENERAL APPEARANCE: The patient is an 83-year-old female who is in no acute cardiorespiratory distress. VITAL SIGNS: Blood pressure 144/69, temperature 98.3. HEENT: Head: Atraumatic, normocephalic. Eyes: No icterus. NECK: Supple. CHEST: Bilaterally symmetrical. HEART: S1, S2 normal. ABDOMEN: Soft, nontender. CENTRAL NERVOUS SYSTEM: No focal deficits. LYMPHATICS: No lymphadenopathy. SKIN: No rashes. PSYCHOLOGIC: Mood and affect are appropriate. LABORATORY DATA: WBC 4.8, hemoglobin 11.1, platelet count 215. Creatinine 1.3. Liver function tests reveal a total bilirubin of 0.4, AST 18, ALT 9, alkaline phosphatase 72, total protein 7.6. IMPRESSION AND PLAN: 1. Weight loss of 40 pounds between April through 08/2018. I will proceed with a CT chest, abdomen and pelvis for further evaluation to see if there is any evidence of underlying malignancy. She does not have any specific symptoms to point towards a specific organ. Hence, I will obtain a CT chest, abdomen and pelvis. She does have a history of sarcoidosis in her chest at the age of 63 [address] chest would also help to evaluate if there is any evidence of recurrent sarcoidosis. I discussed in detail with the patient and family and she understands and agrees with the plan. 2. Anemia, mild with a hemoglobin of 11.1. I will check iron studies, B12, folic acid levels, and reticulocyte count. Folic acid not available at this time. 3. Malignant hypertension. Appreciate Cardiology consultation. BLADE GAGE MD DR: ITZEL/[email or web address] JOB#: [id number] / [id number]
[2018-08-16 15:00] VITALS: BP 125/61
[2018-08-16 19:25] VITALS: BP 120/56
[2018-08-16 23:21] VITALS: BP 126/58
[2018-08-17 03:25] VITALS: BP 145/71
[2018-08-17 07:00] VITALS: BP 155/74
[2018-08-17 08:16] LABS: BASO % 1 % (0-3); EOS # 0.3 x10^3/uL (0.0-0.7); EOS % 5 % (0-3); HEMATOCRIT 30.8 % (36.0-47.0); HEMOGLOBIN 10.4 g/dL (12.0-15.5); LYMPH # 1.6 x10^3/uL (1.0-4.8); LYMPH % 30 % (24-48); MEAN CORPUSCULAR HEMOGLOBIN 28 pg (25-35); MEAN CORPUSCULAR HGB CONC 34 g/dL (31-37); MEAN CORPUSCULAR VOLUME 84 fL (79-100); MONO # 0.4 x10^3/uL (0.0-1.1); MONO % 7 % (0-9); NEUT % 57 % (31-73); PLATELET COUNT 193 x10^3/uL (140-400); RED BLOOD COUNT 3.68 x10^6/uL (3.50-5.40); RED CELL DISTRIBUTION WIDTH 14.5 % (11.5-14.5); WHITE BLOOD COUNT 5.3 x10^3/uL (4.0-11.0)
--- NOTE | 2018-08-17 08:35 | PDOC ---
PROGRESS NOTES Subjective Subjective HPI - f/u of Weight loss ROS - no CP Objective Objective Vital Signs Date Time Temp Pulse Resp B/P (MAP) Pulse Ox O2 Delivery O2 Flow Rate FiO2 08/17/18 08:08 Room Air 08/17/18 07:00 98.1 53 18 155/74 (101) 99 98.1 Intake and Output 08/17/18 07:00 Output Total 1 ml Balance -1 ml Output Urine Total 1 ml # Voids 4 Physical Exam Heart: Normal S1, Normal S2 General: Alert, Oriented X3, No acute distress Lungs: Clear to auscultation Neuro: Normal speech Psych/Mental Status: Mental status NL Assessment Assessment Problems Medical Problems: (1) Hypertensive urgency Status: Acute IMPRESSION AND PLAN: 1. Weight loss of 40 pounds between April through 08/2018. I will proceed with a CT chest, abdomen and pelvis for further evaluation to see if there is any evidence of underlying malignancy. She does not have any specific symptoms to point towards a specific organ. Hence, I will obtain a CT chest, abdomen and pelvis. She does have a history of sarcoidosis in her chest at the age of 63 [address] chest would also help to evaluate if there is any evidence of recurrent sarcoidosis. I discussed in detail with the patient and family and she understands and agrees with the plan. 2. Anemia, mild with a hemoglobin of 11.1. Iron studies are suggestive of anemia due to chronic disease. 3. Malignant hypertension. Appreciate Cardiology consultation. Comment Review of Relevant I have reviewed the following items gabriela (where applicable) has been applied. Labs Laboratory Tests Test 08/15/18 14:27 08/15/18 16:00 08/16/18 08:40 08/17/18 07:05 White Blood Count 5.5 x10^3/uL (4.0-11.0) 4.8 x10^3/uL (4.0-11.0) 5.3 x10^3/uL (4.0-11.0) Red Blood Count 3.97 x10^6/uL (3.50-5.40) 4.04 x10^6/uL (3.50-5.40) 3.68 x10^6/uL (3.50-5.40) Hemoglobin 11.1 g/dL (12.0-15.5) 11.1 g/dL (12.0-15.5) 10.4 g/dL (12.0-15.5) Hematocrit 33.8 % (36.0-47.0) 34.1 % (36.0-47.0) 30.8 % (36.0-47.0) Mean Corpuscular Volume 85 fL (79-100) 85 fL (79-100) 84 fL (79-100) Mean Corpuscular Hemoglobin 28 pg (25-35) 28 pg (25-35) 28 pg (25-35) Mean Corpuscular Hemoglobin Concent 33 g/dL (31-37) 33 g/dL (31-37) 34 g/dL (31-37) Red Cell Distribution Width 14.7 % (11.5-14.5) 14.9 % (11.5-14.5) 14.5 % (11.5-14.5) Platelet Count 230 x10^3/uL (140-400) 215 x10^3/uL (140-400) 193 x10^3/uL (140-400) Neutrophils (%) (Auto) 53 % (31-73) 61 % (31-73) 57 % (31-73) Lymphocytes (%) (Auto) 32 % (24-48) 27 % (24-48) 30 % (24-48) Monocytes (%) (Auto) 9 % (0-9) 7 % (0-9) 7 % (0-9) Eosinophils (%) (Auto) 5 % (0-3) 4 % (0-3) 5 % (0-3) Basophils (%) (Auto) 1 % (0-3) 1 % (0-3) 1 % (0-3) Neutrophils # (Auto) 2.9 x10^3uL (1.8-7.7) 2.9 x10^3uL (1.8-7.7) 3.0 x10^3uL (1.8-7.7) Lymphocytes # (Auto) 1.8 x10^3/uL (1.0-4.8) 1.3 x10^3/uL (1.0-4.8) 1.6 x10^3/uL (1.0-4.8) Monocytes # (Auto) 0.5 x10^3/uL (0.0-1.1) 0.3 x10^3/uL (0.0-1.1) 0.4 x10^3/uL (0.0-1.1) Eosinophils # (Auto) 0.3 x10^3/uL (0.0-0.7) 0.2 x10^3/uL (0.0-0.7) 0.3 x10^3/uL (0.0-0.7) Basophils # (Auto) 0.1 x10^3/uL (0.0-0.2) 0.1 x10^3/uL (0.0-0.2) 0.0 x10^3/uL (0.0-0.2) Prothrombin Time 14.7 SEC (11.7-14.0) Prothromb Time International Ratio 1.2 (0.8-1.1) Sodium Level 142 mmol/L (136-145) 144 mmol/L (136-145) Potassium Level 3.4 mmol/L (3.5-5.1) 3.9 mmol/L (3.5-5.1) Chloride Level 104 mmol/L (98-107) 106 mmol/L (98-107) Carbon Dioxide Level 27 mmol/L (21-32) 28 mmol/L (21-32) Anion Gap 11 (6-14) 10 (6-14) Blood Urea Nitrogen 18 mg/dL (7-20) 19 mg/dL (7-20) Creatinine 1.4 mg/dL (0.6-1.0) 1.3 mg/dL (0.6-1.0) Estimated GFR (Cockcroft-Gault) 43.7 47.6 BUN/Creatinine Ratio 13 (6-20) Glucose Level 84 mg/dL (70-99) 98 mg/dL (70-99) Calcium Level 9.0 mg/dL (8.5-10.1) 9.1 mg/dL (8.5-10.1) Total Bilirubin 0.4 mg/dL (0.2-1.0) Aspartate Amino Transf (AST/SGOT) 18 U/L (15-37) Alanine Aminotransferase (ALT/SGPT) 9 U/L (14-59) Alkaline Phosphatase 72 U/L (46-116) Creatine Kinase 95 U/L (26-192) Creatine Kinase MB (Mass) 1.0 ng/mL (0.0-3.6) Creatine Kinase MB Relative Index 1.1 % (0-4) Troponin I Quantitative < 0.017 ng/mL (0.000-0.055) Total Protein 7.6 g/dL (6.4-8.2) Albumin 3.3 g/dL (3.4-5.0) Albumin/Globulin Ratio 0.8 (1.0-1.7) Urine Collection Type Unknown Urine Color Yellow Urine Clarity Clear Urine pH 6.5 Urine Specific [place] 1.015 Urine Protein Negative mg/dL (NEG-TRACE) Urine Glucose (UA) Negative mg/dL (NEG) Urine Ketones (Stick) Negative mg/dL (NEG) Urine Blood Negative (NEG) Urine Nitrite Negative (NEG) Urine Bilirubin Negative (NEG) Urine Urobilinogen Dipstick 1.0 mg/dL (0.2 mg/dL) Urine Leukocyte Esterase Trace (NEG) Urine RBC 1-2 /HPF (0-2) Urine WBC Occ /HPF (0-4) Urine Squamous Epithelial Cells Few /LPF Urine Bacteria Few /HPF (0-FEW) Reticulocyte Count (auto) 1.0 % (0.5-2.5) Iron Level 39 ug/dL (50-170) Total Iron Binding Capacity 200 ug/dL (250-450) Iron Saturation 20 % (15-34) Ferritin 167 ng/mL (8-252) Triglycerides Level 75 mg/dL (0-150) Cholesterol Level 222 mg/dL (0-200) LDL Cholesterol, Calculated 167 mg/dL (0-100) VLDL Cholesterol, Calculated 15 mg/dL (0-40) Non-HDL Cholesterol Calculated 182 mg/dL (0-129) HDL Cholesterol 40 mg/dL (40-60) Cholesterol/HDL Ratio 5.6 Vitamin B12 Level 348 pg/mL (247-911) Thyroid Stimulating Hormone (TSH) 1.681 uIU/mL (0.358-3.74) Laboratory Tests Test 08/16/18 08:40 08/17/18 07:05 White Blood Count 4.8 x10^3/uL (4.0-11.0) 5.3 x10^3/uL (4.0-11.0) Red Blood Count 4.04 x10^6/uL (3.50-5.40) 3.68 x10^6/uL (3.50-5.40) Hemoglobin 11.1 g/dL (12.0-15.5) 10.4 g/dL (12.0-15.5) Hematocrit 34.1 % (36.0-47.0) 30.8 % (36.0-47.0) Mean Corpuscular Volume 85 fL (79-100) 84 fL (79-100) Mean Corpuscular Hemoglobin 28 pg (25-35) 28 pg (25-35) Mean Corpuscular Hemoglobin Concent 33 g/dL (31-37) 34 g/dL (31-37) Red Cell Distribution Width 14.9 % (11.5-14.5) 14.5 % (11.5-14.5) Platelet Count 215 x10^3/uL (140-400) 193 x10^3/uL (140-400) Neutrophils (%) (Auto) 61 % (31-73) 57 % (31-73) Lymphocytes (%) (Auto) 27 % (24-48) 30 % (24-48) Monocytes (%) (Auto) 7 % (0-9) 7 % (0-9) Eosinophils (%) (Auto) 4 % (0-3) 5 % (0-3) Basophils (%) (Auto) 1 % (0-3) 1 % (0-3) Neutrophils # (Auto) 2.9 x10^3uL (1.8-7.7) 3.0 x10^3uL (1.8-7.7) Lymphocytes # (Auto) 1.3 x10^3/uL (1.0-4.8) 1.6 x10^3/uL (1.0-4.8) Monocytes # (Auto) 0.3 x10^3/uL (0.0-1.1) 0.4 x10^3/uL (0.0-1.1) Eosinophils # (Auto) 0.2 x10^3/uL (0.0-0.7) 0.3 x10^3/uL (0.0-0.7) Basophils # (Auto) 0.1 x10^3/uL (0.0-0.2) 0.0 x10^3/uL (0.0-0.2) Reticulocyte Count (auto) 1.0 % (0.5-2.5) Sodium Level 144 mmol/L (136-145) Potassium Level 3.9 mmol/L (3.5-5.1) Chloride Level 106 mmol/L (98-107) Carbon Dioxide Level 28 mmol/L (21-32) Anion Gap 10 (6-14) Blood Urea Nitrogen 19 mg/dL (7-20) Creatinine 1.3 mg/dL (0.6-1.0) Estimated GFR (Cockcroft-Gault) 47.6 Glucose Level 98 mg/dL (70-99) Calcium Level 9.1 mg/dL (8.5-10.1) Iron Level 39 ug/dL (50-170) Total Iron Binding Capacity 200 ug/dL (250-450) Iron Saturation 20 % (15-34) Ferritin 167 ng/mL (8-252) Triglycerides Level 75 mg/dL (0-150) Cholesterol Level 222 mg/dL (0-200) LDL Cholesterol, Calculated 167 mg/dL (0-100) VLDL Cholesterol, Calculated 15 mg/dL (0-40) Non-HDL Cholesterol Calculated 182 mg/dL (0-129) HDL Cholesterol 40 mg/dL (40-60) Cholesterol/HDL Ratio 5.6 Vitamin B12 Level 348 pg/mL (247-911) Thyroid Stimulating Hormone (TSH) 1.681 uIU/mL (0.358-3.74) Microbiology 08/15/18 Urine Culture - Preliminary, Resulted 08/15/18 Urine Culture Result 1 (KILO) - Preliminary, Resulted Medications Current Medications Acetaminophen (Tylenol) 1,000 mg 1X ONCE PO Last administered on 08/15/18at 15: 03; Start 08/15/18 at 14:30; Stop 08/15/18 at 14:31; Status DC Labetalol HCl (Normodyne Iv Push) 20 mg 1X ONCE IVP Last administered on at 15:08; Start 08/15/18 at 14:30; Stop 08/15/18 at 14:31; Status DC Labetalol HCl (Normodyne Iv Push) 40 mg 1X ONCE IVP Last administered on at 15:53; Start 08/15/18 at 15:30; Stop 12/5/18 at 15:31; Status DC Lisinopril (Prinivil) 10 mg 1X ONCE PO Last administered on 08/15/18at 15:58; Start 08/15/18 at 15:45; Stop 08/15/18 at 15:47; Status DC Amlodipine Besylate (Norvasc) 10 mg 1X ONCE PO Last administered on 08/15/18at 18:37; Start 08/15/18 at 18:30; Stop 08/15/18 at 18:31; Status DC Aspirin (Ecotrin) 81 mg DAILY PO Last administered on 08/16/18at 08:41; Start 08/16/18 at 09:00 Carvedilol (Coreg) 25 mg DAILY PO Last administered on 08/16/18at 08:42; Start 08/16/18 at 09:00; Stop 08/16/18 at 09:14; Status DC Lisinopril (Prinivil) 40 mg DAILY PO Last administered on 08/16/18at 08:41; Start 08/16/18 at 09:00 Lisinopril (Prinivil) 20 mg 1X ONCE PO Last administered on 08/15/18at 18:38; Start 08/15/18 at 18:30; Stop 08/15/18 at 18:31; Status DC Influenza Virus Vaccine (Afluria Trivalent [id number] Syringe) 0.5 ml ONCE ONCE VAX IM Last administered on 08/16/18at 08:44; Start 08/16/18 at 09:00; Stop 08/16/18 at 09:01; Status DC Clonidine HCl (Catapres) 0.2 mg 1X ONCE PO Last administered on 08/16/18at 00: 37; Start 08/16/18 at 00:45; Stop 08/16/18 at 00:46; Status DC Clonidine HCl (Catapres) 0.2 mg PRN Q2HR PRN PO HYPERTENSION, SEE COMMENTS; Start 08/16/18 at 00:30 Potassium Chloride (Klor-Con) 40 meq 1X ONCE PO ; Start 08/16/18 at 09:15; Stop 08/16/18 at 09:16; Status Cancel Carvedilol (Coreg) 12.5 mg DAILY PO ; Start 08/17/18 at 09:00 Isosorbide Mononitrate (Imdur) 30 mg DAILY PO Last administered on 08/16/18at 11 :27; Start 08/16/18 at 10:00 Hydrochlorothiazide (Microzide) 12.5 mg DAILY PO Last administered on at 11:27; Start 08/16/18 at 10:00 Potassium Chloride (KCl Oral Soln) 40 meq 1X ONCE FT ; Start 08/16/18 at 14:00 ; Stop 08/16/18 at 14:00; Status DC Active Scripts Active Reported Carvedilol 25 Mg Tablet 25 Mg PO DAILY Lisinopril 40 Mg Tablet 40 Mg PO DAILY Aspir 81 (Aspirin) 81 Mg Tablet. 1 Tab PO DAILY Vitals/I & O Vital Sign - Last 24 Hours 08/16/18 08/16/18 08/16/18 08/16/18 08:41 08:42 11:00 11:27 Temp 98.3 98.3 Pulse 55 52 90 50 Resp 18 B/P (MAP) 144/69 144/69 140/62 (88) 140/62 Pulse Ox 99 O2 Delivery Room Air 08/16/18 08/16/18 08/16/18 08/16/18 11:40 15:00 19:25 20:18 Temp 98.6 97.8 98.6 97.8 Pulse 50 49 Resp 18 18 B/P (MAP) 125/61 (82) 120/56 (77) Pulse Ox 99 100 O2 Delivery Room Air Room Air Room Air Room Air 08/16/18 08/17/18 08/17/18 08/17/18 23:21 03:25 07:00 08:08 Temp 98.2 98.2 98.1 98.2 98.2 98.1 Pulse 52 53 53 Resp 18 16 18 B/P (MAP) 126/58 (80) 145/71 (95) 155/74 (101) Pulse Ox 100 100 99 O2 Delivery Room Air Room Air Room Air Room Air Intake and Output 08/16/18 08/16/18 08/17/18 15:00 23:00 07:00 Output Total 1 ml Balance -1 ml BLADE GAGE MD Aug 17, 2018 08:34
[2018-08-17 08:38] LABS: CALCIUM 8.9 mg/dL (8.5-10.1); CREATININE 1.5 mg/dL (0.6-1.0); GFR 40.3; POTASSIUM 3.5 mmol/L (3.5-5.1)
[2018-08-17] MEDS ORDERED: IOHEXOL 300 MG/ML 100ML VIAL. IV ONE (08:45)
[2018-08-17] MEDS ORDERED: IOHEXOL 240 MG/ML 50ML VIAL. PO ONE (08:45)
[2018-08-17] MEDS ORDERED: CONTRAST GIVEN. MC PRN (08:45)
[2018-08-17] MEDS: hydroCHLOROthiazide 12.5 MG CAPSULE PO SCH (09:24)
[2018-08-17] MEDS: ISOSORBIDE MONONITRATE ER 30 MG TAB.ER.24H PO SCH (09:24)
[2018-08-17] MEDS: ASPIRIN ENTERIC COATED 81 MG TABLET.DR. PO SCH (09:24)
[2018-08-17] MEDS: CARVEDILOL 12.5 MG TABLET. PO SCH (09:27)
[2018-08-17] MEDS: LISINOPRIL 20 MG TABLET PO SCH (09:28)
--- NOTE | 2018-08-17 10:43 | PDOC ---
SWAPNA RAMOS CORROSION CONTROL FITTER 08/17/18 1043: CARDIO Progress Notes Date and Time Date of Service 08/17/2018 Time of Evaluation 0950 Subjective Subjective: No Chest Pain, No shortness of breath, No Palpitations Vitals Vitals Vital Signs Date Time Temp Pulse Resp B/P (MAP) Pulse Ox O2 Delivery O2 Flow Rate FiO2 08/17/18 09:28 53 155/74 08/17/18 08:08 Room Air 08/17/18 07:00 98.1 18 99 98.1 Weight Weight [ ] Input and Output Intake and Output Intake and Output 08/17/18 07:00 Output Total 1 ml Balance -1 ml Output Urine Total 1 ml # Voids 4 Laboratory Labs Laboratory Tests Test 08/17/18 07:00 08/17/18 07:05 Sodium Level 140 mmol/L (136-145) Potassium Level 3.5 mmol/L (3.5-5.1) Chloride Level 105 mmol/L (98-107) Carbon Dioxide Level 27 mmol/L (21-32) Anion Gap 8 (6-14) Blood Urea Nitrogen 20 mg/dL (7-20) Creatinine 1.5 mg/dL (0.6-1.0) Estimated GFR (Cockcroft-Gault) 40.3 Glucose Level 93 mg/dL (70-99) Calcium Level 8.9 mg/dL (8.5-10.1) White Blood Count 5.3 x10^3/uL (4.0-11.0) Red Blood Count 3.68 x10^6/uL (3.50-5.40) Hemoglobin 10.4 g/dL (12.0-15.5) Hematocrit 30.8 % (36.0-47.0) Mean Corpuscular Volume 84 fL (79-100) Mean Corpuscular Hemoglobin 28 pg (25-35) Mean Corpuscular Hemoglobin Concent 34 g/dL (31-37) Red Cell Distribution Width 14.5 % (11.5-14.5) Platelet Count 193 x10^3/uL (140-400) Neutrophils (%) (Auto) 57 % (31-73) Lymphocytes (%) (Auto) 30 % (24-48) Monocytes (%) (Auto) 7 % (0-9) Eosinophils (%) (Auto) 5 % (0-3) Basophils (%) (Auto) 1 % (0-3) Neutrophils # (Auto) 3.0 x10^3uL (1.8-7.7) Lymphocytes # (Auto) 1.6 x10^3/uL (1.0-4.8) Monocytes # (Auto) 0.4 x10^3/uL (0.0-1.1) Eosinophils # (Auto) 0.3 x10^3/uL (0.0-0.7) Basophils # (Auto) 0.0 x10^3/uL (0.0-0.2) Microbiology Micro Microbiology 08/15/18 Urine Culture - Preliminary, Resulted 08/15/18 Urine Culture Result 1 (KILO) - Preliminary, Resulted Physical Exam HEENT: Neck Supple W Full Motion Chest: Symmetric LUNGS: Clear to Auscultation Heart: S1S2, RRR (SR) Extremities: No Calf Tenderness Neurology: alert, oriented, follow commands Assessment Assessment 1. PERDUE: due to high BP. CT head no acute changes, no neuro symptoms 2. Malignant HTN: due diet and missed ACEi. controlled now with current regimen. 3. CAD: past CABG, clinically stable 4. PAD: stable no claudications 5. Asymptomatic SB: no pauses. lowest in the mid40s. 6. Murmur: MR/TR Recommendations 1. ASA, statin. Stop clonidine. PRN. continue coreg and lisinopril/HCTZ/imdur 2. DASH diet 3. Follow up in office in 4 weeks. 4. Being workup for malignancy due to significant wt loss. Defer to PCP/Hemonc CELIA PEARCE MD 08/17/18 1704: CARDIO Progress Notes Assessment Assessment Patient seen and examined. Agree with NURSERY SUPERVISOR's assessment and plan. Blood pressure much better controlled CAD status clinically stable Continue current medical regimen and follow-up with our office as scheduled SWAPNA RAMOS APRN Aug 17, 2018 10:43 CELIA PEARCE MD Aug 17, 2018 17:04
[2018-08-17 10:47] VITALS: BP 127/55
--- NOTE | 2018-08-17 12:04 | CONS ---
DATE OF CONSULTATION: PULMONARY CONSULTATION ATTENDING PHYSICIAN: David Bertrand DO. REASON FOR CONSULTATION: History of sarcoidosis and weight loss. HISTORY OF PRESENT ILLNESS: The patient is an 83-year-old female who reportedly had sarcoidosis some 20 years ago. She states she was on prednisone for sarcoidosis and she said she was taken off. This appeared that the sarcoidosis was dormant. She was brought into the hospital after she had subjective weight loss about 40 pounds. She denies any chest pain, no shortness of breath, no cough, no fever, no chills, no hemoptysis. The patient was also noted to have high blood pressure on admission around 250 systolic. Her chest x-ray did not reveal any obvious infiltrates. She is going to have a CT chest, abdomen and pelvis. PAST MEDICAL HISTORY: History of sarcoidosis, not sure whether it was biopsy proven, but she reportedly was treated 20 years ago at with prednisone. History of coronary artery disease, hypertension, chronic renal insufficiency. PAST SURGICAL HISTORY: CABG. FAMILY HISTORY: Sister had ovarian cancer. SOCIAL HISTORY: Nonsmoker and nonalcoholic. REVIEW OF SYSTEMS: Twelve-point system obtained. Pertinent positives discussed in my history of present illness, otherwise noncontributory. All systems that were negative were reviewed as well. MEDICATIONS: All reviewed as listed in the MRAD. PHYSICAL EXAMINATION: GENERAL: She is awake, following commands. VITAL SIGNS: On room air 98% saturation, blood pressure much better, afebrile. HEENT: Sclerae nonicteric. NECK: Supple. LUNGS: Clear. CARDIOVASCULAR: Regular rate and rhythm. ABDOMEN: Soft. EXTREMITIES: With no pitting edema. LABORATORY DATA: Reviewed. White cell count is 5.3, hemoglobin 10.4. Chemistries with a BUN of 20 and creatinine 1.5. IMPRESSION: 1. The patient with history of sarcoidosis diagnosed some 20 years ago, not sure whether there was a biopsy done for confirmation. She was treated with steroids long time ago and was taken off. On the plain chest x-ray, I did not see any significant interstitial lung disease or any obvious adenopathy. CT chest has been scheduled and will follow up and make recommendation. 2. Forty-pound subjective weight loss. We will look for any malignancies and Dr. Choe has been consulted as well. 3. No significant history of tobacco use. RECOMMENDATIONS: 1. We will review the CT chest and make further recommendations. 2. CT abdomen and pelvis is also being ordered to look for any occult malignancy and we will make recommendations. 3. Management of blood pressure per PCP. MARS WEIR MD DR: SONALI/jeremy JOB#: [id number] / [id number]
--- NOTE | 2018-08-17 12:18 | PDOC ---
PROGRESS NOTES Chief Complaint Chief Complaint Hypertensive Emergency History of Present Illness History of Present Illness Pt was seen on Cardiac floor for hypertensive emergency resolving Current BP 155 /74 with sinus bradycardia R 53. She issitting up in bed and eating breakfast, looks much better and showing improvement, no acute overnight events, she did admit 40 lb wt loss over last 3-4 months, denied any hx of cancer or bloody stools. h pulmonary sarcoid, will consult Dr. Choe for work up on wt loss, [place] plant to CT chest abd and pelvis. Per Cardio: murmur MR/TR, start statin, asa, stop clonidine, decrease coreg, continue norvsc, start lisinopril and hctz and imdur. Event monitor as OP. Hypokalemia has resolved 3.9, Cr improved to 1.3 08/15 CT head and CXR were negative for acute findings. MICK RN wt loss and any events or needs of pt Followed by Cardio, oncology, pulmonology Vitals Vitals Vital Signs Date Time Temp Pulse Resp B/P (MAP) Pulse Ox O2 Delivery O2 Flow Rate FiO2 08/17/18 10:47 98.2 57 18 127/55 (79) 98 Room Air 98.2 Physical Exam General: Alert, Oriented X3, Cooperative, No acute distress Heart: Regular rate, Normal S1 Lungs: Clear, Other (no wheezes apprecaited on ascultation) Abdomen: Soft, No tenderness Extremities: No cyanosis, No edema Skin: No breakdown, No significant lesion Labs LABS Laboratory Tests Test 08/17/18 07:00 08/17/18 07:05 Sodium Level 140 mmol/L (136-145) Potassium Level 3.5 mmol/L (3.5-5.1) Chloride Level 105 mmol/L (98-107) Carbon Dioxide Level 27 mmol/L (21-32) Anion Gap 8 (6-14) Blood Urea Nitrogen 20 mg/dL (7-20) Creatinine 1.5 mg/dL (0.6-1.0) Estimated GFR (Cockcroft-Gault) 40.3 Glucose Level 93 mg/dL (70-99) Calcium Level 8.9 mg/dL (8.5-10.1) White Blood Count 5.3 x10^3/uL (4.0-11.0) Red Blood Count 3.68 x10^6/uL (3.50-5.40) Hemoglobin 10.4 g/dL (12.0-15.5) Hematocrit 30.8 % (36.0-47.0) Mean Corpuscular Volume 84 fL (79-100) Mean Corpuscular Hemoglobin 28 pg (25-35) Mean Corpuscular Hemoglobin Concent 34 g/dL (31-37) Red Cell Distribution Width 14.5 % (11.5-14.5) Platelet Count 193 x10^3/uL (140-400) Neutrophils (%) (Auto) 57 % (31-73) Lymphocytes (%) (Auto) 30 % (24-48) Monocytes (%) (Auto) 7 % (0-9) Eosinophils (%) (Auto) 5 % (0-3) Basophils (%) (Auto) 1 % (0-3) Neutrophils # (Auto) 3.0 x10^3uL (1.8-7.7) Lymphocytes # (Auto) 1.6 x10^3/uL (1.0-4.8) Monocytes # (Auto) 0.4 x10^3/uL (0.0-1.1) Eosinophils # (Auto) 0.3 x10^3/uL (0.0-0.7) Basophils # (Auto) 0.0 x10^3/uL (0.0-0.2) Review of Systems Review of Systems General: Denies fever, fatigue, chills Cardio: Denies chest pain, palpitations Pulm: Denies soa, cough Assessment and Plan Assessmemt and Plan Assessment Hypertensive Emergency Sys 250 controlled 155/74, Cr 1.3 Sinus Bradycardia 53 Hypokalemia resoved 3.9 40 lbs wt loss per patient- Oncology consult Sarcoidosis pulmonary consulted HLD Plan CBC BMP Hypertensive meds per cardio ASA Cardiac monitoring VTE prophylaxis Appreciate Cardiology input Appreciate Oncology input Appreciate Pulmonology input PT/OT home meds Comment Review of Relevant I have reviewed the following items gabriela (where applicable) has been applied. Labs Laboratory Tests Test 08/15/18 14:27 08/15/18 16:00 08/16/18 08:40 08/17/18 07:00 White Blood Count 5.5 x10^3/uL (4.0-11.0) 4.8 x10^3/uL (4.0-11.0) Red Blood Count 3.97 x10^6/uL (3.50-5.40) 4.04 x10^6/uL (3.50-5.40) Hemoglobin 11.1 g/dL (12.0-15.5) 11.1 g/dL (12.0-15.5) Hematocrit 33.8 % (36.0-47.0) 34.1 % (36.0-47.0) Mean Corpuscular Volume 85 fL (79-100) 85 fL (79-100) Mean Corpuscular Hemoglobin 28 pg (25-35) 28 pg (25-35) Mean Corpuscular Hemoglobin Concent 33 g/dL (31-37) 33 g/dL (31-37) Red Cell Distribution Width 14.7 % (11.5-14.5) 14.9 % (11.5-14.5) Platelet Count 230 x10^3/uL (140-400) 215 x10^3/uL (140-400) Neutrophils (%) (Auto) 53 % (31-73) 61 % (31-73) Lymphocytes (%) (Auto) 32 % (24-48) 27 % (24-48) Monocytes (%) (Auto) 9 % (0-9) 7 % (0-9) Eosinophils (%) (Auto) 5 % (0-3) 4 % (0-3) Basophils (%) (Auto) 1 % (0-3) 1 % (0-3) Neutrophils # (Auto) 2.9 x10^3uL (1.8-7.7) 2.9 x10^3uL (1.8-7.7) Lymphocytes # (Auto) 1.8 x10^3/uL (1.0-4.8) 1.3 x10^3/uL (1.0-4.8) Monocytes # (Auto) 0.5 x10^3/uL (0.0-1.1) 0.3 x10^3/uL (0.0-1.1) Eosinophils # (Auto) 0.3 x10^3/uL (0.0-0.7) 0.2 x10^3/uL (0.0-0.7) Basophils # (Auto) 0.1 x10^3/uL (0.0-0.2) 0.1 x10^3/uL (0.0-0.2) Prothrombin Time 14.7 SEC (11.7-14.0) Prothromb Time International Ratio 1.2 (0.8-1.1) Sodium Level 142 mmol/L (136-145) 144 mmol/L (136-145) 140 mmol/L (136-145) Potassium Level 3.4 mmol/L (3.5-5.1) 3.9 mmol/L (3.5-5.1) 3.5 mmol/L (3.5-5.1) Chloride Level 104 mmol/L (98-107) 106 mmol/L (98-107) 105 mmol/L (98-107) Carbon Dioxide Level 27 mmol/L (21-32) 28 mmol/L (21-32) 27 mmol/L (21-32) Anion Gap 11 (6-14) 10 (6-14) 8 (6-14) Blood Urea Nitrogen 18 mg/dL (7-20) 19 mg/dL (7-20) 20 mg/dL (7-20) Creatinine 1.4 mg/dL (0.6-1.0) 1.3 mg/dL (0.6-1.0) 1.5 mg/dL (0.6-1.0) Estimated GFR (Cockcroft-Gault) 43.7 47.6 40.3 BUN/Creatinine Ratio 13 (6-20) Glucose Level 84 mg/dL (70-99) 98 mg/dL (70-99) 93 mg/dL (70-99) Calcium Level 9.0 mg/dL (8.5-10.1) 9.1 mg/dL (8.5-10.1) 8.9 mg/dL (8.5-10.1) Total Bilirubin 0.4 mg/dL (0.2-1.0) Aspartate Amino Transf (AST/SGOT) 18 U/L (15-37) Alanine Aminotransferase (ALT/SGPT) 9 U/L (14-59) Alkaline Phosphatase 72 U/L (46-116) Creatine Kinase 95 U/L (26-192) Creatine Kinase MB (Mass) 1.0 ng/mL (0.0-3.6) Creatine Kinase MB Relative Index 1.1 % (0-4) Troponin I Quantitative < 0.017 ng/mL (0.000-0.055) Total Protein 7.6 g/dL (6.4-8.2) Albumin 3.3 g/dL (3.4-5.0) Albumin/Globulin Ratio 0.8 (1.0-1.7) Urine Collection Type Unknown Urine Color Yellow Urine Clarity Clear Urine pH 6.5 Urine Specific [place] 1.015 Urine Protein Negative mg/dL (NEG-TRACE) Urine Glucose (UA) Negative mg/dL (NEG) Urine Ketones (Stick) Negative mg/dL (NEG) Urine Blood Negative (NEG) Urine Nitrite Negative (NEG) Urine Bilirubin Negative (NEG) Urine Urobilinogen Dipstick 1.0 mg/dL (0.2 mg/dL) Urine Leukocyte Esterase Trace (NEG) Urine RBC 1-2 /HPF (0-2) Urine WBC Occ /HPF (0-4) Urine Squamous Epithelial Cells Few /LPF Urine Bacteria Few /HPF (0-FEW) Reticulocyte Count (auto) 1.0 % (0.5-2.5) Iron Level 39 ug/dL (50-170) Total Iron Binding Capacity 200 ug/dL (250-450) Iron Saturation 20 % (15-34) Ferritin 167 ng/mL (8-252) Triglycerides Level 75 mg/dL (0-150) Cholesterol Level 222 mg/dL (0-200) LDL Cholesterol, Calculated 167 mg/dL (0-100) VLDL Cholesterol, Calculated 15 mg/dL (0-40) Non-HDL Cholesterol Calculated 182 mg/dL (0-129) HDL Cholesterol 40 mg/dL (40-60) Cholesterol/HDL Ratio 5.6 Vitamin B12 Level 348 pg/mL (247-911) Thyroid Stimulating Hormone (TSH) 1.681 uIU/mL (0.358-3.74) Test 08/17/18 07:05 White Blood Count 5.3 x10^3/uL (4.0-11.0) Red Blood Count 3.68 x10^6/uL (3.50-5.40) Hemoglobin 10.4 g/dL (12.0-15.5) Hematocrit 30.8 % (36.0-47.0) Mean Corpuscular Volume 84 fL (79-100) Mean Corpuscular Hemoglobin 28 pg (25-35) Mean Corpuscular Hemoglobin Concent 34 g/dL (31-37) Red Cell Distribution Width 14.5 % (11.5-14.5) Platelet Count 193 x10^3/uL (140-400) Neutrophils (%) (Auto) 57 % (31-73) Lymphocytes (%) (Auto) 30 % (24-48) Monocytes (%) (Auto) 7 % (0-9) Eosinophils (%) (Auto) 5 % (0-3) Basophils (%) (Auto) 1 % (0-3) Neutrophils # (Auto) 3.0 x10^3uL (1.8-7.7) Lymphocytes # (Auto) 1.6 x10^3/uL (1.0-4.8) Monocytes # (Auto) 0.4 x10^3/uL (0.0-1.1) Eosinophils # (Auto) 0.3 x10^3/uL (0.0-0.7) Basophils # (Auto) 0.0 x10^3/uL (0.0-0.2) Laboratory Tests Test 08/17/18 07:00 08/17/18 07:05 Sodium Level 140 mmol/L (136-145) Potassium Level 3.5 mmol/L (3.5-5.1) Chloride Level 105 mmol/L (98-107) Carbon Dioxide Level 27 mmol/L (21-32) Anion Gap 8 (6-14) Blood Urea Nitrogen 20 mg/dL (7-20) Creatinine 1.5 mg/dL (0.6-1.0) Estimated GFR (Cockcroft-Gault) 40.3 Glucose Level 93 mg/dL (70-99) Calcium Level 8.9 mg/dL (8.5-10.1) White Blood Count 5.3 x10^3/uL (4.0-11.0) Red Blood Count 3.68 x10^6/uL (3.50-5.40) Hemoglobin 10.4 g/dL (12.0-15.5) Hematocrit 30.8 % (36.0-47.0) Mean Corpuscular Volume 84 fL (79-100) Mean Corpuscular Hemoglobin 28 pg (25-35) Mean Corpuscular Hemoglobin Concent 34 g/dL (31-37) Red Cell Distribution Width 14.5 % (11.5-14.5) Platelet Count 193 x10^3/uL (140-400) Neutrophils (%) (Auto) 57 % (31-73) Lymphocytes (%) (Auto) 30 % (24-48) Monocytes (%) (Auto) 7 % (0-9) Eosinophils (%) (Auto) 5 % (0-3) Basophils (%) (Auto) 1 % (0-3) Neutrophils # (Auto) 3.0 x10^3uL (1.8-7.7) Lymphocytes # (Auto) 1.6 x10^3/uL (1.0-4.8) Monocytes # (Auto) 0.4 x10^3/uL (0.0-1.1) Eosinophils # (Auto) 0.3 x10^3/uL (0.0-0.7) Basophils # (Auto) 0.0 x10^3/uL (0.0-0.2) Microbiology 08/15/18 Urine Culture - Preliminary, Resulted 08/15/18 Urine Culture Result 1 (KILO) - Preliminary, Resulted Medications Current Medications Acetaminophen (Tylenol) 1,000 mg 1X ONCE PO Last administered on 08/15/18at 15: 03; Start 08/15/18 at 14:30; Stop 08/15/18 at 14:31; Status DC Labetalol HCl (Normodyne Iv Push) 20 mg 1X ONCE IVP Last administered on at 15:08; Start 08/15/18 at 14:30; Stop 08/15/18 at 14:31; Status DC Labetalol HCl (Normodyne Iv Push) 40 mg 1X ONCE IVP Last administered on at 15:53; Start 08/15/18 at 15:30; Stop 08/15/18 at 15:31; Status DC Lisinopril (Prinivil) 10 mg 1X ONCE PO Last administered on 08/15/18at 15:58; Start 08/15/18 at 15:45; Stop 08/15/18 at 15:47; Status DC Amlodipine Besylate (Norvasc) 10 mg 1X ONCE PO Last administered on 08/15/18at 18:37; Start 08/15/18 at 18:30; Stop 08/15/18 at 18:31; Status DC Aspirin (Ecotrin) 81 mg DAILY PO Last administered on 08/17/18at 09:24; Start 08/16/18 at 09:00 Carvedilol (Coreg) 25 mg DAILY PO Last administered on 08/16/18at 08:42; Start 08/16/18 at 09:00; Stop 08/16/18 at 09:14; Status DC Lisinopril (Prinivil) 40 mg DAILY PO Last administered on 08/17/18at 09:28; Start 08/16/18 at 09:00 Lisinopril (Prinivil) 20 mg 1X ONCE PO Last administered on 08/15/18at 18:38; Start 08/15/18 at 18:30; Stop 08/15/18 at 18:31; Status DC Influenza Virus Vaccine (Afluria Trivalent [id number] Syringe) 0.5 ml ONCE ONCE VAX IM Last administered on 08/16/18at 08:44; Start 08/16/18 at 09:00; Stop 08/16/18 at 09:01; Status DC Clonidine HCl (Catapres) 0.2 mg 1X ONCE PO Last administered on 08/16/18at 00: 37; Start 08/16/18 at 00:45; Stop 08/16/18 at 00:46; Status DC Clonidine HCl (Catapres) 0.2 mg PRN Q2HR PRN PO HYPERTENSION, SEE COMMENTS; Start 08/16/18 at 00:30; Stop 08/17/18 at 10:41; Status DC Potassium Chloride (Klor-Con) 40 meq 1X ONCE PO ; Start 08/16/18 at 09:15; Stop 08/16/18 at 09:16; Status Cancel Carvedilol (Coreg) 12.5 mg DAILY PO Last administered on 08/17/18at 09:27; Start 08/17/18 at 09:00 Isosorbide Mononitrate (Imdur) 30 mg DAILY PO Last administered on 08/17/18at 09 :24; Start 08/16/18 at 10:00; Stop 08/17/18 at 10:41; Status DC Hydrochlorothiazide (Microzide) 12.5 mg DAILY PO Last administered on at 09:24; Start 08/16/18 at 10:00 Potassium Chloride (KCl Oral Soln) 40 meq 1X ONCE FT ; Start 08/16/18 at 14:00 ; Stop 08/16/18 at 14:00; Status DC Iohexol (Omnipaque 300 Mg/ml) 60 ml 1X ONCE IV Last administered on 08/17/18at 09:12; Start 08/17/18 at 08:45; Stop 08/17/18 at 08:46; Status DC Iohexol (Omnipaque 240 Mg/ml) 50 ml 1X ONCE PO Last administered on 08/17/18at 09:12; Start 08/17/18 at 08:45; Stop 08/17/18 at 08:46; Status DC Info (CONTRAST GIVEN -- Rx MONITORING) 1 each PRN DAILY PRN MC SEE COMMENTS; Start 08/17/18 at 08:45; Stop 08/19/18 at 08:44 Atorvastatin Calcium (Lipitor) 40 mg QHS PO ; Start 08/17/18 at 21:00 Isosorbide Mononitrate (Imdur) 60 mg DAILY PO ; Start 08/18/18 at 09:00 Active Scripts Active Reported Carvedilol 25 Mg Tablet 25 Mg PO DAILY Lisinopril 40 Mg Tablet 40 Mg PO DAILY Aspir 81 (Aspirin) 81 Mg Tablet. 1 Tab PO DAILY Vitals/I & O Vital Sign - Last 24 Hours 08/16/18 08/16/18 08/16/18 08/16/18 15:00 19:25 20:18 23:21 Temp 98.6 97.8 98.2 98.6 97.8 98.2 Pulse 50 49 52 Resp 18 18 18 B/P (MAP) 125/61 (82) 120/56 (77) 126/58 (80) Pulse Ox 99 100 100 O2 Delivery Room Air Room Air Room Air Room Air 08/17/18 08/17/18 08/17/18 08/17/18 03:25 07:00 08:08 09:24 Temp 98.2 98.1 98.2 98.1 Pulse 53 53 53 Resp 16 18 B/P (MAP) 145/71 (95) 155/74 (101) 155/74 Pulse Ox 100 99 O2 Delivery Room Air Room Air Room Air 08/17/18 08/17/18 08/17/18 09:27 09:28 10:47 Temp 98.2 98.2 Pulse 53 53 57 Resp 18 B/P (MAP) 155/74 155/74 127/55 (79) Pulse Ox 98 O2 Delivery Room Air Intake and Output 08/16/18 08/16/18 08/17/18 15:00 23:00 07:00 Output Total 1 ml Balance -1 ml CECELIA PIERSON III DO Aug 17, 2018 12:18
--- NOTE | 2018-08-17 12:37 | RAD ---
CT of the chest, abdomen and pelvis with contrast, 08/17/2018: HISTORY: Weight loss, sarcoidosis Multidetector CT imaging was performed following oral and IV administration of contrast. There is moderate calcific plaquing of the thoracic aorta without evidence of aneurysm. Moderate scattered coronary artery calcifications are present. The heart is generally enlarged. There has been a previous median sternotomy. There is also moderate irregular plaquing in the descending thoracic aorta. No mediastinal or hilar adenopathy is seen. There are minimal scattered linear parenchymal scars in the lungs. There is a minimal nonspecific hazy groundglass opacity anteromedially in the right upper lobe. A couple of tiny tiny perifissural and subpleural nodules are noted on the left, typically represent benign lymph nodes and/or vessels. No pulmonary mass or dense consolidation is seen. There is no evidence of pleural fluid. No hepatic abnormality is detected. Numerous calcified gallstones are present in the gallbladder. No pericholecystic edema is seen. The pancreas cannot be clearly from unopacified bowel but shows no evidence of mass. The spleen is of normal size. There is mild bilateral renal cortical scarring. Small renal cysts are evident. A 2.2 cm cyst in the upper pole the left kidney may be a calyceal diverticulum or a parapelvic renal cyst. There is extensive calcific plaquing of the abdominal aorta and its branchesNo abdominal or pelvic adenopathy is seen. There is a T-shaped radiopaque device within the lower pelvis along the inferior margin of the uterus. This probably represents some sort of pessary type surgical implant. The bowel loops are not dilated. The oral contrast material has reached the colon. No free fluid or free air is evident in the abdomen or pelvis. Moderate multilevel degenerative changes are present in the spine. IMPRESSION: 1. Cardiomegaly with extensive calcific plaquing of the aorta and its branches including the coronary arteries. 2. Minimal nonspecific groundglass opacity in the right upper lobe. 3. Cholelithiasis. 4. Bilateral renal cysts. 5. Additional miscellaneous chronic findings as described above. PQRS Compliance Statement: One or more of the following individualized dose reduction techniques were utilized for this examination: 1. Automated exposure control 2. Adjustment of the mA and/or kV according to patient size 3. Use of iterative reconstruction technique Electronically signed by: Ced Siddiqui MD (08/17/2018 12:33 PM) [facility]
[2018-08-17 14:53] VITALS: BP 118/63
[2018-08-17 19:20] VITALS: BP 118/55
[2018-08-17] MEDS: ATORVASTATIN CALCIUM 40 MG TABLET. PO SCH (20:32)
[2018-08-17 23:12] VITALS: BP 151/71
[2018-08-18] VITALS (7 sets, daily range): BP systolic 125–163; BP diastolic 64–90
[2018-08-18 04:22] LABS: BASO % 1 % (0-3); EOS # 0.3 x10^3/uL (0.0-0.7); EOS % 5 % (0-3); HEMATOCRIT 29.8 % (36.0-47.0); LYMPH # 2.2 x10^3/uL (1.0-4.8); LYMPH % 34 % (24-48); MEAN CORPUSCULAR HEMOGLOBIN 28 pg (25-35); MEAN CORPUSCULAR HGB CONC 34 g/dL (31-37); MEAN CORPUSCULAR VOLUME 85 fL (79-100); MONO # 0.6 x10^3/uL (0.0-1.1); MONO % 9 % (0-9); NEUT # 3.4 x10^3uL (1.8-7.7); NEUT % 52 % (31-73); PLATELET COUNT 175 x10^3/uL (140-400); RED BLOOD COUNT 3.53 x10^6/uL (3.50-5.40); RED CELL DISTRIBUTION WIDTH 14.8 % (11.5-14.5); WHITE BLOOD COUNT 6.5 x10^3/uL (4.0-11.0)
[2018-08-18 04:44] LABS: CREATININE 1.5 mg/dL (0.6-1.0); GFR 40.3; POTASSIUM 3.6 mmol/L (3.5-5.1)
[2018-08-18] MEDS: CARVEDILOL 12.5 MG TABLET. PO SCH (08:24)
[2018-08-18] MEDS: ISOSORBIDE MONONITRATE ER 30 MG TAB.ER.24H PO SCH (08:27)
[2018-08-18] MEDS: LISINOPRIL 20 MG TABLET PO SCH (08:27)
[2018-08-18] MEDS: ASPIRIN ENTERIC COATED 81 MG TABLET.DR. PO SCH (08:27)
[2018-08-18] MEDS: hydroCHLOROthiazide 12.5 MG CAPSULE PO SCH (08:27)
--- NOTE | 2018-08-18 10:18 | PDOC ---
PULMONARY PROGRESS NOTES Subjective NO SOA Vitals Vital Signs Date Time Temp Pulse Resp B/P (MAP) Pulse Ox O2 Delivery O2 Flow Rate FiO2 08/18/18 08:27 54 144/85 08/18/18 08:00 Room Air 08/18/18 07:00 98.1 18 99 98.1 General: Alert, No acute distress Lungs: Clear Cardiovascular: S1 Abdomen: Soft Neuro Exam: Alert Extremities: No Edema Skin: Warm Labs Laboratory Tests Test 08/17/18 07:00 08/17/18 07:05 08/18/18 04:00 Sodium Level 140 mmol/L (136-145) 139 mmol/L (136-145) Potassium Level 3.5 mmol/L (3.5-5.1) 3.6 mmol/L (3.5-5.1) Chloride Level 105 mmol/L (98-107) 104 mmol/L (98-107) Carbon Dioxide Level 27 mmol/L (21-32) 29 mmol/L (21-32) Anion Gap 8 (6-14) 6 (6-14) Blood Urea Nitrogen 20 mg/dL (7-20) 28 mg/dL (7-20) Creatinine 1.5 mg/dL (0.6-1.0) 1.5 mg/dL (0.6-1.0) Estimated GFR (Cockcroft-Gault) 40.3 40.3 Glucose Level 93 mg/dL (70-99) 94 mg/dL (70-99) Calcium Level 8.9 mg/dL (8.5-10.1) 9.0 mg/dL (8.5-10.1) White Blood Count 5.3 x10^3/uL (4.0-11.0) 6.5 x10^3/uL (4.0-11.0) Red Blood Count 3.68 x10^6/uL (3.50-5.40) 3.53 x10^6/uL (3.50-5.40) Hemoglobin 10.4 g/dL (12.0-15.5) 10.0 g/dL (12.0-15.5) Hematocrit 30.8 % (36.0-47.0) 29.8 % (36.0-47.0) Mean Corpuscular Volume 84 fL (79-100) 85 fL (79-100) Mean Corpuscular Hemoglobin 28 pg (25-35) 28 pg (25-35) Mean Corpuscular Hemoglobin Concent 34 g/dL (31-37) 34 g/dL (31-37) Red Cell Distribution Width 14.5 % (11.5-14.5) 14.8 % (11.5-14.5) Platelet Count 193 x10^3/uL (140-400) 175 x10^3/uL (140-400) Neutrophils (%) (Auto) 57 % (31-73) 52 % (31-73) Lymphocytes (%) (Auto) 30 % (24-48) 34 % (24-48) Monocytes (%) (Auto) 7 % (0-9) 9 % (0-9) Eosinophils (%) (Auto) 5 % (0-3) 5 % (0-3) Basophils (%) (Auto) 1 % (0-3) 1 % (0-3) Neutrophils # (Auto) 3.0 x10^3uL (1.8-7.7) 3.4 x10^3uL (1.8-7.7) Lymphocytes # (Auto) 1.6 x10^3/uL (1.0-4.8) 2.2 x10^3/uL (1.0-4.8) Monocytes # (Auto) 0.4 x10^3/uL (0.0-1.1) 0.6 x10^3/uL (0.0-1.1) Eosinophils # (Auto) 0.3 x10^3/uL (0.0-0.7) 0.3 x10^3/uL (0.0-0.7) Basophils # (Auto) 0.0 x10^3/uL (0.0-0.2) 0.0 x10^3/uL (0.0-0.2) Laboratory Tests Test 08/18/18 04:00 White Blood Count 6.5 x10^3/uL (4.0-11.0) Red Blood Count 3.53 x10^6/uL (3.50-5.40) Hemoglobin 10.0 g/dL (12.0-15.5) Hematocrit 29.8 % (36.0-47.0) Mean Corpuscular Volume 85 fL (79-100) Mean Corpuscular Hemoglobin 28 pg (25-35) Mean Corpuscular Hemoglobin Concent 34 g/dL (31-37) Red Cell Distribution Width 14.8 % (11.5-14.5) Platelet Count 175 x10^3/uL (140-400) Neutrophils (%) (Auto) 52 % (31-73) Lymphocytes (%) (Auto) 34 % (24-48) Monocytes (%) (Auto) 9 % (0-9) Eosinophils (%) (Auto) 5 % (0-3) Basophils (%) (Auto) 1 % (0-3) Neutrophils # (Auto) 3.4 x10^3uL (1.8-7.7) Lymphocytes # (Auto) 2.2 x10^3/uL (1.0-4.8) Monocytes # (Auto) 0.6 x10^3/uL (0.0-1.1) Eosinophils # (Auto) 0.3 x10^3/uL (0.0-0.7) Basophils # (Auto) 0.0 x10^3/uL (0.0-0.2) Sodium Level 139 mmol/L (136-145) Potassium Level 3.6 mmol/L (3.5-5.1) Chloride Level 104 mmol/L (98-107) Carbon Dioxide Level 29 mmol/L (21-32) Anion Gap 6 (6-14) Blood Urea Nitrogen 28 mg/dL (7-20) Creatinine 1.5 mg/dL (0.6-1.0) Estimated GFR (Cockcroft-Gault) 40.3 Glucose Level 94 mg/dL (70-99) Calcium Level 9.0 mg/dL (8.5-10.1) Medications Active Scripts Medications Dose Route/Sig Max Daily Dose Days Date Category Carvedilol 25 Mg Tablet 25 Mg PO DAILY 08/15/18 Reported Lisinopril 40 Mg Tablet 40 Mg PO DAILY 08/15/18 Reported Aspir 81 (Aspirin) 81 Mg Tablet.dr 1 Tab PO DAILY 04/05/16 Reported Impression . 1. The patient with history of sarcoidosis diagnosed some 20 years ago, not sure whether there was a biopsy done for confirmation. She was treated with steroids long time ago and was taken off. On the plain chest x-ray, I did not see any significant interstitial lung disease or any obvious adenopathy. CT chest with no sig ILD/ADENOPATHY 2. Forty-pound subjective weight loss. We will look for any malignancies and Dr. Choe has been consulted as well. 3. No significant history of tobacco use. Plan . 1. CT chest with no evidence of mass, ILD/sig adenopathy 2. CT abdomen and pelvis with no occult malignancy 3. Management of blood pressure per PCP. 4. No further pulmonary rec. will see MARS TREJO MD Aug 18, 2018 10:18
[2018-08-18] MEDS: hydrALAZINE 25 MG TABLET PO SCH (17:59)
[2018-08-18] MEDS: ATORVASTATIN CALCIUM 40 MG TABLET. PO SCH (21:52)
[2018-08-19 03:03] VITALS: BP 151/71
[2018-08-19 03:47] LABS: BASO # 0.1 x10^3/uL (0.0-0.2); BASO % 1 % (0-3); EOS # 0.3 x10^3/uL (0.0-0.7); EOS % 5 % (0-3); HEMOGLOBIN 10.3 g/dL (12.0-15.5); LYMPH % 31 % (24-48); MEAN CORPUSCULAR HEMOGLOBIN 28 pg (25-35); MEAN CORPUSCULAR HGB CONC 33 g/dL (31-37); MEAN CORPUSCULAR VOLUME 84 fL (79-100); MONO # 0.5 x10^3/uL (0.0-1.1); MONO % 8 % (0-9); NEUT # 3.6 x10^3uL (1.8-7.7); NEUT % 56 % (31-73); PLATELET COUNT 191 x10^3/uL (140-400); RED BLOOD COUNT 3.71 x10^6/uL (3.50-5.40); RED CELL DISTRIBUTION WIDTH 14.9 % (11.5-14.5); WHITE BLOOD COUNT 6.5 x10^3/uL (4.0-11.0)
[2018-08-19 04:00] LABS: CALCIUM 9.6 mg/dL (8.5-10.1); CREATININE 1.4 mg/dL (0.6-1.0); GFR 43.7; POTASSIUM 3.7 mmol/L (3.5-5.1)
[2018-08-19 07:00] VITALS: BP 170/77
[2018-08-19] MEDS: LISINOPRIL 20 MG TABLET PO SCH (08:22)
[2018-08-19] MEDS: hydroCHLOROthiazide 12.5 MG CAPSULE PO SCH (08:22)
[2018-08-19] MEDS: CARVEDILOL 12.5 MG TABLET. PO SCH (08:24)
[2018-08-19] MEDS: ASPIRIN ENTERIC COATED 81 MG TABLET.DR. PO SCH (08:24)
[2018-08-19] MEDS: ISOSORBIDE MONONITRATE ER 30 MG TAB.ER.24H PO SCH (08:24)
[2018-08-19] MEDS: hydrALAZINE 25 MG TABLET PO SCH (08:26)
[2018-08-19 11:00] VITALS: BP 120/71
[2018-08-19] MEDS ORDERED: ISOS30TA4 PO (12:21)
[2018-08-19] MEDS ORDERED: CARV12.511 PO (12:21)
[2018-08-19] MEDS ORDERED: HYDR-2868 PO (12:21)
[2018-08-19] MEDS ORDERED: HYDR12.575 PO (12:21)
[2018-08-19] MEDS ORDERED: ATOR40TA59 PO (12:21)
--- NOTE | 2018-08-19 15:41 | PDOC3 ---
Discharge Summary IPC Final Diagnosis Problems Medical Problems: (1) Hypertensive urgency Status: Acute Brief Hospital Course Ms. Barron is a 83 old F who presented with: 1. PERDUE: due to high BP. CT head no acute changes, no neuro symptoms 2. Malignant HTN: due diet and missed ACEi. controlled now with current regimen. 3. CAD: past CABG, clinically stable 4. PAD: stable no claudications 5. Asymptomatic SB: no pauses. lowest in the mid40s. 6. Murmur: MR/TR Pt admitted and resumed on ASA, statin. Cards stopped clonidine. PRN. and recc continuing coreg and lisinopril/HCTZ/imdur. Hydralazine added for better control Outpt workup for malignancy due to significant wt loss Scheduled Aspirin (Aspir 81), 1 TAB PO DAILY, (Reported) Atorvastatin Calcium (Atorvastatin Calcium), 40 MG PO QHS Carvedilol (Carvedilol ), 12.5 MG PO DAILY Hydralazine Hcl (Hydralazine Hcl), 25 MG PO TID Hydrochlorothiazide (Hydrochlorothiazide Capsule ), 12.5 MG PO DAILY Isosorbide Mononitrate (Isosorbide Mononitrate Er), 60 MG PO DAILY Lisinopril (Lisinopril), 40 MG PO DAILY, (Reported) Discontinued Medications Carvedilol (Carvedilol), 25 MG PO DAILY, (Reported) CONCHITA BARBA MD Aug 19, 2018 15:41
== END 2018-08-19 14:52 | disposition home or self-care (01) | DRG 305 ==
LOC: ER 14:15 → 2 NORTH 15:50
PROVIDERS: ADMIT Internal Medicine; ATTEND Internal Medicine
DX: I16.0 Hypertensive urgency (principal); I16.1 Hypertensive emergency; E87.6 Hypokalemia; D86.0 Sarcoidosis of lung; D64.9 Anemia, unspecified; E78.00 Pure hypercholesterolemia, unspecified; E78.5 Hyperlipidemia, unspecified; I12.9 Hypertensive chronic kidney disease with stage 1 through stage 4 chronic kidney disease, or unspecified chronic kidney disease; I25.10 Atherosclerotic heart disease of native coronary artery without angina pectoris; I25.2 Old myocardial infarction; N18.9 Chronic kidney disease, unspecified; Z79.82 Long term (current) use of aspirin; Z80.41 Family history of malignant neoplasm of ovary; Z82.49 Family history of ischemic heart disease and other diseases of the circulatory system; Z91.19 Patient's noncompliance with other medical treatment and regimen; Z95.1 Presence of aortocoronary bypass graft; Z87.891 Personal history of nicotine dependence; Z88.8 Allergy status to other drugs, medicaments and biological substances; Z79.899 Other long term (current) drug therapy
CPT/HCPCS: 36415; 70450; 71045; 71260; 74177; 80048; 80053; 80061; 81001; 82553; 82607; 82728; 83540; 83550; 84443; 84484; 85025; 85045; 85610; 87086; 87186; 90471; 90756; 93005; 96374; 96375; 96376; J3490; Q9966; Q9967; 97110; 97116; 97530; 99285-25; Q2035

== ENCOUNTER 2020-09-03 12:58 | Emergency (ER) | payer MEDICARE, OTHER ==
[~2020-09-03] VITALS: Ht 157.5 cm; Wt 61.0 kg
[~2020-09-03 12:58] MED LIST changes: +AMLO-187 PO; -AMLO10TA6 PO; +ATOR40TA59 PO; +CARV12.511 PO; +CARV25TA2 PO; +HYDR-2868 PO; +HYDR12.575 PO; +ISOS30TA4 PO; +LISI40TA2 PO
--- NOTE | 2020-09-03 13:21 | PHYS DOC ---
Past Medical History Past Medical History: Diabetes-Type II, High Cholesterol, Hypertension, [place] Past Surgical History: Coronary Bypass Surgery Additional Past Surgical Histo: 2 CABG's Smoking Status: Never Smoker Alcohol Use: None Drug Use: None General Adult EDM: Chief Complaint: OTHER COMPLAINTS HPI: HPI: Patient is a 85 year old female who presents with here by EMS because she states this morning when she went to the restroom she could see her pessary device. Patient had this put in a year ago at . She states about a month ago that it was taken out and cleaned at . Patient states she has slight pain down in her vaginal area. Rates her aching pain a 11/18. Review of Systems: Review of Systems: Constitutional: Denies fever or chills. [] Eyes: Denies change in visual acuity. [] HENT: Denies nasal congestion or sore throat. [] Respiratory: Denies cough or shortness of breath. [] Cardiovascular: Denies chest pain or edema. + Hypertensive [] GI: Denies abdominal pain, nausea, vomiting, bloody stools or diarrhea. + Pessary device came out. +Slight vaginal pain [] : Denies dysuria. [] Musculoskeletal: Denies back pain or joint pain. [] Integument: Denies rash. [] Neurologic: Denies headache, focal weakness or sensory changes. [] Endocrine: Denies polyuria or polydipsia. [] Lymphatic: Denies swollen glands. [] Psychiatric: Denies depression or anxiety. [] Heart Score: Risk Factors: Risk Factors: DM, Current or recent (<one month) smoker, HTN, HLP, family history of CAD, obesity. Risk Scores: Score 0 - 3: 2.5% MACE over next 6 weeks - Discharge Home Score 4 - 6: 20.3% MACE over next 6 weeks - Admit for Clinical Observation Score 7 - 10: 72.7% MACE over next 6 weeks - Early Invasive Strategies Allergies: Allergies: Allergies Coded Allergies Type Severity Reaction Last Updated Verified morphine Allergy Intermediate 12/09/13 Yes Physical Exam: PE: Constitutional: Well developed, well nourished, no acute distress, non-toxic appearance. [] HENT: Normocephalic, atraumatic, bilateral external ears normal, oropharynx moist, no oral exudates, nose normal. [] Eyes: PERRLA, EOMI, conjunctiva normal, no discharge. [] Neck: Normal range of motion, no tenderness, supple, no stridor. [] Cardiovascular:Heart rate regular rhythm, no murmur [] Lungs & Thorax: Bilateral breath sounds clear to auscultation [] Abdomen: Bowel sounds normal, soft, no tenderness, no masses, no pulsatile masses. Pessary device out in underwear[] Skin: Warm, dry, no erythema, no rash. [] Back: No tenderness, no CVA tenderness. [] Extremities: No tenderness, no cyanosis, no clubbing, ROM intact, no edema. [] Neurologic: Alert and oriented X 3, normal motor function, normal sensory function, no focal deficits noted. [] Psychologic: Affect normal, judgement normal, mood normal. [] EKG: EK and read by Dr. Walker as sinus rhythm, no obvious ST abnormality, interpretation is limited due to artifact. No STEMI. [] Radiology/Procedures: Radiology/Procedures: [] Impression: [facility] [address] [place] [address] IMAGING REPORT Signed PATIENT: SARIAH MENENDEZ MACCOUNT: [id number] : 1935 LOCATION: ER AGE: 85 SEX: F EXAM STATUS: REG ER ORD. PHYSICIAN: BRISSA COLINDRES APRN REASON: HYPERTENSIVE URGENCY PROCEDURE: PORTABLE CHEST 1V XR CHEST 1V Clinical Indication: Reason: HYPERTENSIVE URGENCY / Spl. Instructions: / History: Comparison: AP chest August 29, 2019. Findings: CABG changes redemonstrated. Atherosclerotic and tortuous thoracic aorta. Stable cardiomegaly. Lungs are clear. There is no pneumothorax. No pleural effusion is appreciated. No acute bone abnormality. IMPRESSION: 1. No acute pulmonary process. 2. Stable cardiomegaly and tortuous thoracic aorta. Electronically signed by: Paul Daily MD (09/03/2020 2:45 PM) [id number] DICTATED and SIGNED BY: PAUL DAILY MD DATE: 09/03/20 [id number] Course & Med Decision Making: Course & Med Decision Making Pertinent Labs and Imaging studies reviewed. (See chart for details) See HPI. Alert and oriented x4. Speaks in full complete sentences. Upon examination the Pessary was fully out and in her underwear. It Is placed in a sterile baggy. Patient to call her physician at for follow-up. Her uterus is not seen outside or in the external vagina. Abdomen soft and nontender. I have spoken to Dr. Anguiano our FENCE E[employer]OR SUPERVISOR that is on-call and he states that it is not an emergency and she can follow-up with her FENCE ERECTOR SUPERVISOR as soon as possible or she can follow-up with him. Patient is hypertensive the 200s over 80s. Currently denies chest pain, shortness of breath, headache, dizziness, abdominal pain, nausea, vomiting, numbness or tingling, focal weakness, vision changes. Blood pressure is running in the 200s systolically. Patient is a very poor historian but when her medications in our computer system are read off such as hydrochlorothiazide, lisinopril, Coreg, hydralazine, Isosorbide she states that all those sound from the urine yes she takes them. She also takes aspirin and atorvastatin. Patient is given 5 mg hydralazine in the ED. After the 5 mg of hydralazine is given patient's blood pressure remains 214. Blood work shows no acute findings. With her EKG compared to an old EKG there are no changes. After speaking with Dr Walker concerning this patient, patient findings and plan of care she states we will increase the hydralazine to 4 times a day instead of 3 times a day. If she needs to follow-up with her primary care provider. Patient remains asymptomatic with her high blood pressure. [] Vaishali Disclaimer: Vaishali Disclaimer: This electronic medical record was generated, in whole or in part, using a voice recognition dictation system. Departure Departure Impression: Primary Impression: Encounter for medical screening examination Additional Impression: Hypertension Qualified Codes: I10 - Essential (primary) hypertension Disposition: 01 DC HOME SELF CARE/HOMELESS Condition: STABLE Referrals: JOSH ARRIETA (PCP) MAZIN ANGUIANO MD Patient Instructions: Hypertension Additional Instructions: Increase your hydralazine to 4 times a day instead of 3 times a day. Follow-up with your primary care provider as soon as possible. To begin having chest pain or shortness of air you need to return to the hospital. Follow-up with your bench molder and let them know that you are pessary device has fallen out. BRISSA COLINDRES APRN Sep 03, 2020 13:21
[2020-09-03 14:16] LABS: BASO % 1 % (0-3); EOS # 0.2 x10^3/uL (0.0-0.7); EOS % 2 % (0-3); HEMATOCRIT 32.6 % (36.0-47.0); HEMOGLOBIN 10.6 g/dL (12.0-15.5); LYMPH # 1.4 x10^3/uL (1.0-4.8); LYMPH % 16 % (24-48); MEAN CORPUSCULAR HEMOGLOBIN 27 pg (25-35); MEAN CORPUSCULAR HGB CONC 33 g/dL (31-37); MEAN CORPUSCULAR VOLUME 84 fL (79-100); MONO # 0.5 x10^3/uL (0.0-1.1); MONO % 6 % (0-9); NEUT # 6.2 x10^3/uL (1.8-7.7); NEUT % 75 % (31-73); PLATELET COUNT 176 x10^3/uL (140-400); RED BLOOD COUNT 3.87 x10^6/uL (3.50-5.40); RED CELL DISTRIBUTION WIDTH 15.4 % (11.5-14.5); WHITE BLOOD COUNT 8.4 x10^3/uL (4.0-11.0)
[2020-09-03 14:25] LABS: PROTHROMBIN TIME PATIENT 14.4 SEC (11.7-14.0)
[2020-09-03] MEDS ORDERED: hydrALAZINE 20 MG/ML VIAL. IVP ONE (14:45)
--- NOTE | 2020-09-03 14:47 | RAD ---
XR CHEST 1V Clinical Indication: Reason: HYPERTENSIVE URGENCY / Spl. Instructions: / History: Comparison: AP chest August 29, 2019. Findings: CABG changes redemonstrated. Atherosclerotic and tortuous thoracic aorta. Stable cardiomegaly. Lungs are clear. There is no pneumothorax. No pleural effusion is appreciated. No acute bone abnormality. IMPRESSION: 1. No acute pulmonary process. 2. Stable cardiomegaly and tortuous thoracic aorta. Electronically signed by: Paul Daily MD (09/03/2020 2:45 PM) [id number]
[2020-09-03 14:56] LABS: CALCIUM 8.6 mg/dL (8.5-10.1); CREATININE 1.3 mg/dL (0.6-1.0); GFR 47.3
[2020-09-03 15:02] LABS: ALBUMIN 2.9 g/dL (3.4-5.0); ALBUMIN/GLOBULIN RATIO 0.7 (1.0-1.7); TOTAL BILIRUBIN 0.3 mg/dL (0.2-1.0); TOTAL PROTEIN 6.8 g/dL (6.4-8.2)
[2020-09-03 17:00] VITALS: BP 222/98
== END 2020-09-03 17:27 | disposition home or self-care (01) ==
LOC: ER 12:58
DX: I10 Essential (primary) hypertension (principal); R10.2 Pelvic and perineal pain; E11.9 Type 2 diabetes mellitus without complications; E78.00 Pure hypercholesterolemia, unspecified; I25.2 Old myocardial infarction; Z98.890 Other specified postprocedural states; Z88.6 Allergy status to analgesic agent
CPT/HCPCS: 36415; 71045; 80053; 83880; 84484; 85025; 85610; 93005; 96374; 99285; J0360